=== PATIENT | male | born 1935 | race Caucasian/White ===

== ENCOUNTER 2018-02-21 06:16 | Emergency (ER) | payer OTHER ==
--- OUTSIDE RECORDS SUMMARY | 2018-02-21 06:18 | XMS REPORT | Clinical Summary ---
:1935 Author Organization [facility] Address [address] [place] [address] Phone Care Team Providers Name Role Phone Unavailable Primary Care Provider Unavailable Allergies No Known Allergies Current Medications Prescription Sig. Disp. Refills Start Date End Date Status ramipril (ALTACE) 10 MG Take 10 mg by Active capsule mouth daily. VIT Take 1 capsule by Active C/E/ZN/COPPR/LUTEIN/SONDRA mouth 2 (two) PALLAVI (PRESERVISION AREDS times daily. 2 ORAL) travoprost (TRAVATAN Z) Place 1 drop into Active 0.004 % Drop ophthalmic both eyes drops nightly. BRIMONIDINE Place 1 drop into Active TARTRATE/TIMOLOL both eyes 2 (two) (COMBIGAN OPHT) times daily. cycloSPORINE (RESTASIS) Place 1 drop into Active 0.05 % ophthalmic both eyes 2 (two) emulsion times daily. nisoldipine (SULAR) 17 Take 1 tablet (17 0 06/11/2016 Active MG 24 hr tablet mg total) by mouth daily. aspirin 81 MG chewable Take 1 tablet (81 30 tablet 0 06/10/2016 Active tablet mg total) by mouth daily. clopidogrel (PLAVIX) 75 Take 1 tablet (75 30 tablet 0 06/10/2016 Active mg tablet mg total) by mouth daily. pantoprazole (PROTONIX) Take 1 tablet (40 30 tablet 0 06/10/2016 Active 40 MG tablet mg total) by mouth daily. Active Problems Problem Noted Date Glaucoma 06/09/2016 Peripheral arterial disease (HCC) 06/08/2016 PVD (peripheral vascular disease) (HCC) 05/26/2016 Essential hypertension 05/26/2016 Social History Tobacco Use Types Packs/Day Years Used Date Former Smoker 2 25 Quit: 07/11/1984 Smokeless Tobacco: Never Used Alcohol Use Drinks/Week oz/Week Comments Yes 14 Cans of beer 8.4 Sex Assigned at Date Recorded Not on file Last Filed Vital Signs Not on file Plan of Treatment Health Maintenance Due Date Last Done Comments INFLUENZA VACCINE 04/10/2018 Implants Implanted Type Area Loan Assistant Device Expiration Model / Identifier Date Serial / Lot Grft Vasc Knit Gld [id number] - [id number]/Pa N/A: GETINGE 02/07/2019 [id number] / Implanted: Qty: 1 on 06/08/2016 by Sergio Collins MD [facility] IND:REMI: CV / [id number] Results Not on fileafter 02/20/2017
[2018-02-21 07:08] LABS: Absolute Lymphocytes (CBC) 2.1 K/uL (0.7-4.9); Absolute Monocytes 0.6 K/uL (0.1-1.3); Absolute Neutrophil 4.1 K/uL (1.8-8.0); Basophils % 0.9 % (0-1.3); Eosinophils % 2.2 % (0-4.4); Hematocrit 46.4 % (39.6-49.0); Lymphocytes % 29.6 % (15.3-44.8); MCH 32.2 pg (27.0-35.0); MCV 93.8 fL (80-100); MPV 9.9 fL (7.6-11.3); Monocytes % 8.4 % (3.3-12.3); RBC Red Blood Cell Count 4.94 M/uL (4.33-5.43)
[2018-02-21 07:13] LABS: Protime INR 0.92
[2018-02-21] MEDS ORDERED: ONDANSETRON 4 MG/2 ML VIAL ONE (07:29)
[2018-02-21] MEDS ORDERED: MORPHINE 4 MG/ML SYR ONE (07:29)
[2018-02-21 07:53] LABS: Albumin 3.7 g/dL (3.4-5.0); Bilirubin Direct 0.2 mg/dL (0-0.2); Bilirubin Total 0.7 mg/dL (0.2-1.0); CKMB Creatine Kinase MB 1.4 ng/mL (0.3-3.6); Magnesium 2.3 mg/dL (1.8-2.4)
[2018-02-21] MEDS ORDERED: FENTANYL CITR 100 MCG/2 ML ONE (08:19)
[2018-02-21 08:20] LABS: Urine Blood NEGATIVE (NEG); Urine Glucose NEGATIVE (NEG); Urine Protein NEGATIVE (NEG)
--- NOTE | 2018-02-21 08:46 | RAD REPORT ---
EXAM DESCRIPTION: CT - Abdomen Pelvis W Contrast - 02/21/2018 8:24 am CLINICAL HISTORY: Abdominal pain radiating to the chest, history of kidney stones COMPARISON: None. TECHNIQUE: Biphasic, helical CT imaging of the abdomen and pelvis was performed following 100 ml non -ionic IV contrast. No oral contrast given. All CT scans are performed using dose optimization technique as appropriate and may include automated exposure control or mA/KV adjustment according to patient size. FINDINGS: No suspicious findings in the lung bases. No pericardial effusion. The liver, spleen, and pancreas show no suspicious findings. Gallbladder and biliary tree are also wi thout suspicious finding. Gallstones can be occult on CT imaging. Symmetric renal function is seen with no hydronephrosis or suspicious renal mass. No obstructing or n onobstructing calculi. Scarring changes are present in the upper pole of the left kidney. No pyelonep hritis. Urinary bladder is mostly contracted. Patient has a prominent prostate gland projecting into the bladder base. This is usually benign prostatic hypertrophy. Correlation can be made with PSA valu es. No dilated bowel loops or bowel wall thickening. Distal esophagus is mildly prominent. CT imaging is inherently limited. No appendicitis or other acute GI process seen. No free air, free fluid or inflam matory stranding. No mass or bulky lymphadenopathy. The patient has a very small incidental umbilica l hernia. Small right inguinal hernia is seen. Fat extends a few cm into the inguinal canal. Patient has a moderate size left inguinal hernia. This appears to be both a direct and indirect hernia. No ad renal abnormality. Disc and bone degenerative changes are present. No acute or pathologic bone process identified. The l eft external iliac artery is occluded. Most or possibly all of the left common iliac artery also occl uded. Left internal iliac artery is more difficult to follow. Patient has a fem fem bypass graft in p lace. This fully opacifies with contrast. IMPRESSION: Contrast-enhanced CT imaging shows no acute or emergent findings. No renal or ureteral calculi seen. No acute process. Echavarria of the distal thoracic esophagus are mildly prominent. CT is inherently limited in ability to a ccurately assess the esophagus. Bilateral inguinal hernias left greater than right with no acute component. 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
--- NOTE | 2018-02-21 08:53 | EDPHYS ---
Physician Documentation [facility] Name: Beau Velazquez Age: 82 yrs Sex: Male : 1935 Arrival Date: 02/21/2018 Time: 06:16 Bed 5 Private MD: Gilberto Claire H ED Physician Jeb Wan HPI: 02/21 06:24 This 82 yrs old Male presents to ER via Unassigned with complaints of kb Abdominal Pain. 06:24 The patient presents with abdominal pain that is diffuse. Onset: The symptoms/episode kb began/occurred this morning, at 04:15. The symptoms radiate to chest. Associated signs and symptoms: none. The symptoms are described as dull. Modifying factors: The symptoms are alleviated by nothing, the symptoms are aggravated by nothing. Severity of pain: At its worst the pain was moderate in the emergency department the pain is unchanged. The patient has experienced a previous episode, when he had a kidney stone. The patient has not recently seen a physician. Historical: - Allergies: 06:34 No Known Allergies; ea - Home Meds: 06:34 nisoldipine 17 mg Oral Tb24 1 tab once daily [Active]; ramipril 10 mg Oral cap ea [Active]; atorvastatin 40 mg oral tab [Active]; clopidogrel 75 mg oral tab [Active]; furosemide 40 mg Oral tab [Active]; Travatan Z 0.004 % ophthalmic drop [Active]; Combigan 0.2-0.5 % ophthalmic drop 1 drop every 12 hours [Active]; Restasis 0.05 % ophthalmic dpet [Active]; - PMHx: 06:34 restasis; Hypertension; Glaucoma; ea - PSHx: 06:34 cataracts; ea - Immunization history:: Adult Immunizations up to date. - Social history:: Smoking status: Patient/guardian denies using tobacco. - Ebola Screening: : No symptoms or risks identified at this time. ROS: 06:24 Constitutional: Negative for fever, chills, and weight loss, Cardiovascular: Negative kb for chest pain, palpitations, and edema, Respiratory: Negative for shortness of breath, cough, wheezing, and pleuritic chest pain, Back: Negative for injury and pain, : Negative for injury, bleeding, discharge, and swelling, MS/Extremity: Negative for injury and deformity, Skin: Negative for injury, rash, and discoloration, Neuro: Negative for headache, weakness, numbness, tingling, and seizure. 06:24 Abdomen/GI: Positive for abdominal pain, Negative for nausea, vomiting, and diarrhea, constipation, abdominal cramps, abdominal distension, anorexia. Exam: 06:24 Constitutional: This is a well developed, well nourished patient who is awake, alert, kb and in no acute distress. Head/Face: Normocephalic, atraumatic. Chest/axilla: Normal chest wall appearance and motion. Nontender with no deformity. No lesions are appreciated. Cardiovascular: Regular rate and rhythm with a normal S1 and S2. No gallops, murmurs, or rubs. Normal PMI, no JVD. No pulse deficits. Respiratory: Lungs have equal breath sounds bilaterally, clear to auscultation and percussion. No rales, rhonchi or wheezes noted. No increased work of breathing, no retractions or nasal flaring. Back: No spinal tenderness. No costovertebral tenderness. Full range of motion. Skin: Warm, dry with normal turgor. Normal color with no rashes, no lesions, and no evidence of cellulitis. MS/ Extremity: Pulses equal, no cyanosis. Neurovascular intact. Full, normal range of motion. Neuro: Awake and alert, GCS 15, oriented to person, place, time, and situation. Cranial nerves II-XII grossly intact. Motor strength 5/5 in all extremities. Sensory grossly intact. Cerebellar exam normal. Normal gait. Vital Signs: 06:28 BP 169 / 75; Pulse 77; Resp 18; Temp 98.2; Pulse Ox 97% on R/A; Weight 81.65 kg; Height ea 5 ft. 11 in. (180.34 cm); Pain 7/10; 08:06 BP 156 / 62; Pulse 72; Resp 16; Pulse Ox 98% on R/A; Pain 8/10; ss 06:28 Body Mass Index 25.10 (81.65 kg, 180.34 cm) ea MDM: 06:23 Patient medically screened. kb 06:26 Data reviewed: vital signs, nurses notes. Data interpreted: Pulse oximetry: on room air kb is 100 %. Interpretation: normal. 08:52 Counseling: I had a detailed discussion with the patient and/or guardian regarding: the kb historical points, exam findings, and any diagnostic results supporting the discharge/admit diagnosis, lab results, radiology results, the need for outpatient follow up, a family practitioner, a pier worker, to return to the emergency department if symptoms worsen or persist or if there are any questions or concerns that arise at home. 02/21 06:24 Order name: Basic Metabolic Panel; Complete Time: 07:58 kb 02/21 06:24 Order name: CBC with Diff; Complete Time: 07:20 kb 02/21 06:24 Order name: Ckmb; Complete Time: 07:58 kb 02/21 06:24 Order name: LFT's; Complete Time: 07:58 kb 02/21 06:24 Order name: Magnesium; Complete Time: 07:58 kb 02/21 06:24 Order name: NT PRO-BNP; Complete Time: 07:58 kb 02/21 06:24 Order name: PT-INR; Complete Time: 07:20 kb 02/21 06:24 Order name: Ptt, Activated; Complete Time: 07:20 kb 02/21 06:24 Order name: Troponin (emerg Dept Use Only); Complete Time: 07:25 kb 02/21 06:24 Order name: Lipase; Complete Time: 07:58 kb 02/21 07:53 Order name: Urine Dipstick--Ancillary (enter results); Complete Time: 08:21 bd 02/21 07:59 Order name: CT Abd/Pelvis - W/Contrast; Complete Time: 08:49 kb 02/21 06:24 Order name: EKG; Complete Time: 06:24 kb 02/21 06:24 Order name: Cardiac monitoring; Complete Time: 06:36 kb 02/21 06:24 Order name: EKG - Nurse/Tech; Complete Time: 06:36 kb 02/21 06:24 Order name: IV Saline Lock; Complete Time: 06:55 kb 02/21 06:24 Order name: Labs collected and sent; Complete Time: 06:50 kb 02/21 06:24 Order name: O2 Per Protocol; Complete Time: 06:37 kb 02/21 06:24 Order name: O2 Sat Monitoring; Complete Time: 06:36 kb 02/21 06:24 Order name: Urine Dipstick-Ancillary (obtain specimen); Complete Time: 07:06 kb EC:40 Rate is 78 beats/min. Rhythm is regular, Normal Sinus Rhythm with Right bundle branch kb block. QRS interval is prolonged at 152 msec. Administered Medications: 07:30 Drug: Zofran 4 mg Route: IVP; Site: right forearm; sg 08:10 Follow up: Response: No adverse reaction ss 07:30 Drug: morphine 2 mg Route: IVP; Site: right forearm; sg 08:10 Follow up: Response: Pain is increased ss 08:18 Drug: fentaNYL (PF) 50 mcg Route: IVP; Site: right antecubital; ss 08:31 Follow up: Response: No adverse reaction; Pain is decreased ss 09:06 Drug: ProTONIX 40 mg Route: IVP; Site: right forearm; sg 09:20 Follow up: Response: No adverse reaction sg 09:06 Drug: Bentyl 20 mg Route: PO; sg 09:20 Follow up: Response: No adverse reaction sg Disposition: 02/21/18 08:53 Discharged to Home. Impression: Generalized abdominal pain. - Condition is Stable. - Discharge Instructions: Abdominal Pain, Adult, [id number]. - Prescriptions for Bentyl 20 mg Oral Tablet - take 1 tablet by ORAL route every 6 hours As needed; 20 tablet. - Medication Reconciliation Form, Thank You Letter, Antibiotic Education, Prescription Opioid Use form. - Follow up: Emergency Department; When: As needed; Reason: Worsening of condition. Follow up: Gilberto Claire DO; When: 2 - 3 days; Reason: Recheck today's complaints, Continuance of care, Re-evaluation by your physician. Addendum: 02/25/2018 15:36 Co-signature as Attending Physician, Jeb Wan MD. g s Signatures: Dispatcher [employer] EDVA Sera Khanna, KIM-Marcus HERNANDEZP-Srinivas Stewart RN RN sg Smirch, Shelby, RN RN ss Krenek, Amber RN RN Chuyita Lyn RN RN ea Starr, Gregory, MD MD Corrections: (The following items were deleted from the chart) 02/21 06:55 06:40 Rate is 78 beats/min. Rhythm is regular, Normal Sinus Rhythm with Right bundle kb branch block. kb 09:11 08:53 02/21/2018 08:53 Discharged to Home. Impression: Generalized abdominal pain. sg Condition is Stable. Forms are Medication Reconciliation Form, Thank You Letter, Antibiotic Education, Prescription Opioid Use. Follow up: Emergency Department; When: As needed; Reason: Worsening of condition. Follow up: Gilberto Claire; When: 2 - 3 days; Reason: Recheck today's complaints, Continuance of care, Re-evaluation by your physician. kb
--- NOTE | 2018-02-21 08:53 | ER ---
Nurse's Notes [facility] Name: Beau Velazquez Age: 82 yrs Sex: Male : 1935 Arrival Date: 02/21/2018 Time: 06:16 Bed 5 Private MD: Gilberto Claire H Diagnosis: Generalized abdominal pain Presentation: 02/21 06:25 Presenting complaint: Patient states: Dull abdominal ache that started at 0415 and ea moved up to chest. Pt reports he has a history of kidney stones. Denies n/v/d. Transition of care: patient was not received from another setting of care. Onset of symptoms was February 21, 2018. Risk Assessment: Do you want to hurt yourself or someone else? Patient reports no desire to harm self or others. Initial Sepsis Screen: Does the patient meet any 2 criteria? No. Patient's initial sepsis screen is negative. Does the patient have a suspected source of infection? No. Patient's initial sepsis screen is negative. Care prior to arrival: None. 06:25 Method Of Arrival: Ambulatory ea 06:25 Acuity: RONNIE 3 ea Triage Assessment: 06:27 General: Appears in no apparent distress. Behavior is calm, cooperative, appropriate ea for age. Pain: Complains of pain in abdomen Pain radiates to chest Pain currently is 6 out of 10 on a pain scale. Quality of pain is described as aching. Neuro: Level of Consciousness is awake, alert, obeys commands, Oriented to person, place, time, situation. Cardiovascular: Patient's skin is warm and dry. Respiratory: Airway is patent Respiratory effort is even, unlabored, Respiratory pattern is regular, symmetrical. GI: Abdomen is round Bowel sounds present X 4 quads. Patient currently denies nausea, vomiting. Historical: - Allergies: 06:34 No Known Allergies; ea - Home Meds: 06:34 nisoldipine 17 mg Oral Tb24 1 tab once daily [Active]; ramipril 10 mg Oral cap ea [Active]; atorvastatin 40 mg oral tab [Active]; clopidogrel 75 mg oral tab [Active]; furosemide 40 mg Oral tab [Active]; Travatan Z 0.004 % ophthalmic drop [Active]; Combigan 0.2-0.5 % ophthalmic drop 1 drop every 12 hours [Active]; Restasis 0.05 % ophthalmic dpet [Active]; - PMHx: 06:34 restasis; Hypertension; Glaucoma; ea - PSHx: 06:34 cataracts; ea - Immunization history:: Adult Immunizations up to date. - Social history:: Smoking status: Patient/guardian denies using tobacco. - Ebola Screening: : No symptoms or risks identified at this time. Screenin:29 Abuse screen: Denies threats or abuse. Nutritional screening: No deficits noted. ea Tuberculosis screening: No symptoms or risk factors identified. Fall Risk None identified. Assessment: 06:38 GI: ak1 07:05 General: Appears in no apparent distress. Behavior is calm, cooperative. Pain: ss Complains of pain in abdomen and chest Pain currently is 7 out of 10 on a pain scale. Is continuous. Neuro: Level of Consciousness is awake, alert, obeys commands, Oriented to person, place, time, situation. Cardiovascular: Capillary refill < 3 seconds is brisk in bilateral fingers. Respiratory: Airway is patent Respiratory effort is even, unlabored, Respiratory pattern is regular, symmetrical. Respiratory: Denies cough, shortness of breath. GI: Bowel sounds present X 4 quads. Patient currently denies diarrhea, nausea, vomiting. : No signs and/or symptoms were reported regarding the genitourinary system. EENT: Oral mucosa is moist. Derm: Skin is intact, is healthy with good turgor, Skin is pink, warm \\T\\ dry. normal. Musculoskeletal: Circulation, motion, and sensation intact. Range of motion: intact in all extremities, Swelling absent. 07:31 Reassessment: Patient appears in no apparent distress at this time. Patient and/or sg family updated on plan of care and expected duration. Pain level reassessed. Patient is alert, oriented x 3, equal unlabored respirations, skin warm/dry/pink. pt reports " increase in pain and discomfort." Anu PUBLIC ADDRESS SYSTEM OPERATOR notified, orders received, pt medicated, see EMAR Patient states symptoms have not improved. 07:52 Reassessment: spoke with Domingo in lab requesting when remainder of labs will be ss resulted. Domingo reports that labs are being resulted now. 08:07 Reassessment: Pt reports morphine did not help his pain. Reports pain 02/17, MALACHI Zamora ss notified. Fentanyl ordered. Awaiting medication to come from pharmacy. 08:19 Reassessment: Pt to Ct now VIA wheelchair. Fentanyl given as ordered. ss 08:31 Reassessment: back from CT. Pt reports feeling much better after Fentanyl ss administration. Call light within reach. remains at bedside. Awaiting CT results. Vital Signs: 06:28 BP 169 / 75; Pulse 77; Resp 18; Temp 98.2; Pulse Ox 97% on R/A; Weight 81.65 kg; Height ea 5 ft. 11 in. (180.34 cm); Pain 7/10; 08:06 BP 156 / 62; Pulse 72; Resp 16; Pulse Ox 98% on R/A; Pain 8/10; ss 06:28 Body Mass Index 25.10 (81.65 kg, 180.34 cm) ea ED Course: 06:16 Patient arrived in ED. am2 06:16 Gilberto Claire DO is Private Physician. am2 06:23 [facility] kb 06:23 Jeb Wan MD is Attending Physician. kb 06:25 Arm band placed on right wrist. ea 06:25 Patient has correct armband on for positive identification. Bed in low position. Call ea light in reach. Side rails up X 1. 06:27 Triage completed. ea 06:50 Missed attempt(s): 20 gauge in right antecubital area. Bleeding controlled, band aid ea applied, catheter tip intact. 06:51 Missed attempt(s): 20 gauge in left antecubital area. Bleeding controlled, band aid ak1 applied, catheter tip intact. 06:55 Inserted saline lock: 22 gauge in right forearm, using aseptic technique. Blood fc collected. 07:02 Report given to Olga NEVILLE. ea 07:07 Srinivas Jeff, RN is Primary Nurse. sg 08:23 CT completed. Patient tolerated procedure well. Patient moved to CT. Patient moved back vr from CT. 08:25 CT Abd/Pelvis - W/Contrast In Process Unspecified. EDMS 08:53 Gilberto Claire DO is Referral Physician. kb 09:11 No provider procedures requiring assistance completed. IV discontinued, intact, sg bleeding controlled, No redness/swelling at site. Pressure dressing applied. Administered Medications: 07:30 Drug: Zofran 4 mg Route: IVP; Site: right forearm; sg 08:10 Follow up: Response: No adverse reaction ss 07:30 Drug: morphine 2 mg Route: IVP; Site: right forearm; sg 08:10 Follow up: Response: Pain is increased ss 08:18 Drug: fentaNYL (PF) 50 mcg Route: IVP; Site: right antecubital; ss 08:31 Follow up: Response: No adverse reaction; Pain is decreased ss 09:06 Drug: ProTONIX 40 mg Route: IVP; Site: right forearm; sg 09:20 Follow up: Response: No adverse reaction sg 09:06 Drug: Bentyl 20 mg Route: PO; sg 09:20 Follow up: Response: No adverse reaction sg Outcome: 08:53 Discharge ordered by . kb 09:10 Discharged to home ambulatory, with family. sg 09:10 Condition: stable 09:10 Discharge instructions given to patient, family, Instructed on discharge instructions, follow up and referral plans. medication usage, safety practices, Demonstrated understanding of instructions, follow-up care, medications, Prescriptions given X 1. 09:11 Patient left the ED. sg Signatures: Dispatcher [employer] EDMS Sera Khanna, PUBLIC ADDRESS SYSTEM OPERATOR-C PUBLIC ADDRESS SYSTEM OPERATOR-CkSrinivas Alicea RN RN Yuli Bobby RN RN Olga Sanchez RN RN ss Davis, Victoria vr Krenek, Amber RN RN Oxana Gruber Elena RN RN efrain
[2018-02-21] MEDS ORDERED: DICYCLOMINE HCL 10 MG CAP ONE (09:01)
[2018-02-21] MEDS ORDERED: PANTOPRAZOLE 40 MG INJ ONE (09:01)
--- NOTE | 2018-02-21 21:13 | EKG ---
Test Date: 2018-02-21 Test Time: 06:27:05 Modular Set Crew Member: KWESI MEASUREMENT RESULTS: Intervals: Rate: 78 RI: 196 QRSD: 152 QT: 422 QTc: 481 [place]: P: 65 RI: 196 QRS: 50 T: 47 INTERPRETIVE STATEMENTS: Normal sinus rhythm Possible Left atrial enlargement Right bundle branch block Abnormal ECG No previous ECG available for comparison Electronically Signed On 02-21-18 21:12:48 CDT by Johnny Rodriguez
== END 2018-02-21 09:11 | disposition home or self-care (01) ==
LOC: ER 06:16
DX: R10.84 Generalized abdominal pain (principal); I10 Essential (primary) hypertension
CPT/HCPCS: 36415; 74177; 80048; 80076; 81003; 82553; 83690; 83735; 83880; 84484; 85025; 85610; 85730; 93005; C9113; J2405; J3010; Q9967; 99284

== ENCOUNTER 2018-05-26 16:28 | Emergency (ER) | payer OTHER ==
--- OUTSIDE RECORDS SUMMARY | 2018-05-26 16:31 | XMS REPORT | Clinical Summary ---
:1935 Author Organization [facility] Address [address] [place] [address] Care Team Providers Name Role Phone Sharpmagdiel Primary Care Provider Beau Akers Unavailable Allergies No Known Allergies Medications Medication Sig Dispensed Refills Start Date End Date Status ramipril (ALTACE) 10 MG Take 10 mg by 0 Active capsule mouth daily. VIT Take 1 capsule by 0 Active C/E/ZN/COPPR/LUTEIN/SONDRA mouth 2 (two) PALLAVI (PRESERVISION AREDS times daily. 2 ORAL) travoprost (TRAVATAN Z) Place 1 drop into 0 Active 0.004 % Drop ophthalmic both eyes drops nightly. BRIMONIDINE Place 1 drop into 0 Active TARTRATE/TIMOLOL both eyes 2 (two) (COMBIGAN OPHT) times daily. cycloSPORINE (RESTASIS) Place 1 drop into 0 Active 0.05 % ophthalmic both eyes 2 [...] Noted Date Glaucoma 06/09/2016 Peripheral arterial disease 06/08/2016 PVD (peripheral vascular disease) 05/26/2016 Essential hypertension 05/26/2016 Social History Tobacco Use Types Packs/Day Years Used Date Former Smoker 2 25 Quit: 07/11/1984 Smokeless Tobacco: Never Used Alcohol Use Drinks/Week oz/Week Comments Yes 14 Cans of beer 8.4 Sex Assigned at Date Recorded Not on file Job Start Date Occupation Industry Not on file Not on file Not on file Travel History Travel Start Travel End No recent travel history available. Last Filed Vital Signs Not on file Plan of Treatment Health Maintenance Due Date Last Done Comments INFLUENZA VACCINE 04/10/2018 Implants Implanted Type Area Concrete Stone Fabricator Device Shelf Model / Identifier Expiration Serial / Date Lot Angella Ashraf Gld [id number] - [id number] Graft/Pa N/A: GETINGE 02/07/2019 [id number] / Implanted: Qty: 1 on 06/08/2016 by Sergio Collins MD [facility] IND:REMI: CV / [id number] Results Not on fileafter 05/25/2017 Insurance Payer Benefit Plan / Group Subscriber ID Type Phone Address MEDICARE MEDICARE A B xxxxxxxxxx Medicare AETNA - MGD CARE AETNA INDEMNITY NON CONTR xxxxxxxxx Comm ([place]ah) [place] [address] Advance Directives For more information, please contact:[address] [phone] Code Status Date Activated Date Inactivated Comments Full Code 06/08/2016 11:07 AM 06/10/2016 4:33 PM This code status was determined by: Patient Full Code 06/08/2016 5:52 AM 06/08/2016 11:07 AM This code status was determined by: Patient
--- NOTE | 2018-05-26 18:12 | RAD REPORT ---
EXAM DESCRIPTION: RAD - Forearm Right - 05/26/2018 6:04 pm CLINICAL HISTORY: Right arm pain status post fall FINDINGS: No fracture is seen.
[2018-05-26] MEDS ORDERED: LIDOCAINE 1% MPF 30 ML VIAL ONE (18:24)
--- NOTE | 2018-05-26 19:08 | ER ---
Nurse's Notes [facility] Name: Beau Velazquez Age: 82 yrs Sex: Male : 1935 Arrival Date: 05/26/2018 Time: 16:29 Bed 23 Private MD: Gilberto Claire H Diagnosis: Forearm Laceration Presentation: 05/26 16:42 Presenting complaint: Patient states: He was putting the edger away and he tripped and aj1 the handle cut open his right arm. Laceration noted to right arm, bleeding controlled with pressure dressing. Transition of care: patient was not received from another setting of care. Complicating Factors: There are no complicating factors for this patient. Onset of symptoms was May 26, 2018. Risk Assessment: Do you want to hurt yourself or someone else? Patient reports no desire to harm self or others. Initial Sepsis Screen: Does the patient meet any 2 criteria? No. Patient's initial sepsis screen is negative. Does the patient have a suspected source of infection? Yes: Skin breakdown/wound. Care prior to arrival: None. 16:42 Method Of Arrival: Ambulatory aj1 16:42 Acuity: RONNIE 4 aj1 Triage Assessment: 16:45 General: Appears in no apparent distress. comfortable, Behavior is calm, cooperative, aj1 appropriate for age. Pain: Denies pain. Neuro: Level of Consciousness is awake, alert, obeys commands. Cardiovascular: Patient's skin is warm and dry. Respiratory: Airway is patent Respiratory effort is even, unlabored, Respiratory pattern is regular, symmetrical. Injury Description: Laceration sustained to left arm. Historical: - Allergies: 16:45 No Known Allergies; aj1 - Home Meds: 16:45 atorvastatin 40 mg Oral tab [Active]; Combigan 0.2-0.5 % ophthalmic drop 1 drop every aj1 12 hours [Active]; clopidogrel 75 mg Oral tab [Active]; furosemide 40 mg Oral tab [Active]; nisoldipine 17 mg Oral Tb24 1 tab once daily [Active]; ramipril 10 mg Oral cap [Active]; Restasis 0.05 % ophthalmic dpet [Active]; Travatan Z 0.004 % ophthalmic drop [Active]; - PMHx: 16:45 Glaucoma; Hypertension; restasis; aj1 - Immunization history:: Last tetanus immunization: < 5 years ago Flu vaccine is up to date. - Social history:: Smoking status: Patient/guardian denies using tobacco. - Ebola Screening: : Patient denies travel to an Ebola-affected area in the 21 days before illness onset. Screenin:20 Abuse screen: Denies threats or abuse. Denies injuries from another. Nutritional sg screening: No deficits noted. Tuberculosis screening: No symptoms or risk factors identified. Never had TB. Fall Risk None identified. Assessment: 17:20 General: Appears in no apparent distress. comfortable, well groomed, well developed, sg well nourished, Behavior is calm, cooperative, appropriate for age. Pain: Denies pain. Neuro: No deficits noted. Cardiovascular: Capillary refill is brisk in bilateral fingers Patient's skin is warm and dry. Chest pain is denied. Respiratory: No deficits noted. GI: No signs and/or symptoms were reported involving the gastrointestinal system. : No signs and/or symptoms were reported regarding the genitourinary system. EENT: No signs and/or symptoms were reported regarding the EENT system. Derm: Skin is intact, is fragile, is thin, has skin tears on Dorsal aspect of right forearm Skin is pink, warm \T\ dry. Musculoskeletal: Circulation, motion, and sensation intact. Range of motion: intact in all extremities, Swelling absent. Injury Description: Laceration sustained to dorsal aspect of right forearm is clean, superficial, 0.5 to 2.5 cm long, bleeding moderately, a dressing and nura wrap noted the right forearm, applied in triage per pt. Vital Signs: 16:45 BP 164 / 76; Pulse 86; Resp 18; Temp 97.8; Pulse Ox 97% on R/A; Weight 83.91 kg (R); aj1 Height 5 ft. 11 in. (180.34 cm); Pain 0/10; 18:10 BP 150 / 77; Pulse 88; Resp 17; Pulse Ox 98% on R/A; Pain 0/10; sg 16:45 Body Mass Index 25.80 (83.91 kg, 180.34 cm) aj1 ED Course: 16:29 Patient arrived in ED. sb2 16:29 Gilberto Claire DO is Private Physician. sb2 16:44 Triage completed. aj1 16:45 Arm band placed on Patient placed in an exam room. aj1 16:46 Huy Beckford PA is PHCP. burt 16:46 Jung De Leon MD is Attending Physician. jm 17:20 Patient has correct armband on for positive identification. Bed in low position. Call sg light in reach. vehicle monitor technician on. Pulse ox on. NIBP on. Warm blanket given. Head of bed elevated. 17:37 Srinivas Jeff, RN is Primary Nurse. sg 18:01 Forearm Right XRAY In Process Unspecified. EDMS 18:20 Assist provider with laceration repair on dorsal aspect of right forearm that was sg between 2.6 to 7.5 cm using sutures. Set up tray. Performed by Huy SALDIVAR Dressed with 4X4s, Patient tolerated well. Patient did not have IV access during this emergency room visit. Nura wrap to dorsal aspect of right forearm for pressure dressing per ERP order Kelli pressure dressing education provided to pt, pt stated understanding. Wound care: was dressed with non-adherent x1. 19:07 Gilberto Claire DO is Referral Physician. [facility] Administered Medications: 18:18 Drug: Lidocaine (1 %) 20 ml {Note: medication administered by Huy SALDIVAR for sg laceration repair.} Volume: 20 ml; Route: Infiltration; Outcome: 19:08 Discharge ordered by . [facility] 19:10 Discharged to home ambulatory. sg 19:10 Condition: good 19:10 Discharge instructions given to patient, Instructed on discharge instructions, follow up and referral plans. medication usage, safety practices, wound care, Demonstrated understanding of instructions, follow-up care, medications, wound care, Prescriptions given X 1. 19:13 Patient left the ED. mg2 Signatures: Dispatcher [employer] EDMS Deepti Feng, RN RN aj1 Srinivas Jeff, RN RN Huy Beckford PA PA jmm Billeau, Sheri sb2 Vamshi Myers RN RN mg2
--- NOTE | 2018-05-26 19:09 | EDPHYS ---
Physician Documentation [facility] Name: Beau Velazquez Age: 82 yrs Sex: Male : 1935 Arrival Date: 05/26/2018 Time: 16:29 Bed 23 Private MD: Gilberto Claire H ED Physician Jung De Leon HPI: 05/26 17:30 This 82 yrs old Male presents to ER via Ambulatory with complaints of jmm Laceration To Arm. 17:30 The patient has a laceration related to: falling from a standing position. Onset: The jmm symptoms/episode began/occurred acutely, just prior to arrival. Associated signs and symptoms: Pertinent positives: heavy bleeding. Patient states he fell backwards hitting his arm against an edgers handle. Sent from urgent care due to concerns for heavy bleeding. . Historical: - Allergies: 16:45 No Known Allergies; aj1 - Home Meds: 16:45 atorvastatin 40 mg Oral tab [Active]; Combigan 0.2-0.5 % ophthalmic drop 1 drop every aj1 12 hours [Active]; clopidogrel 75 mg Oral tab [Active]; furosemide 40 mg Oral tab [Active]; nisoldipine 17 mg Oral Tb24 1 tab once daily [Active]; ramipril 10 mg Oral cap [Active]; Restasis 0.05 % ophthalmic dpet [Active]; Travatan Z 0.004 % ophthalmic drop [Active]; - PMHx: 16:45 Glaucoma; Hypertension; restasis; aj1 - Immunization history:: Last tetanus immunization: < 5 years ago Flu vaccine is up to date. - Social history:: Smoking status: Patient/guardian denies using tobacco. - Ebola Screening: : Patient denies travel to an Ebola-affected area in the 21 days before illness onset. ROS: 17:30 Constitutional: Negative for fever, chills, and weight loss, Eyes: Negative for injury, jmm pain, redness, and discharge, ENT: Negative for injury, pain, and discharge, Cardiovascular: Negative for chest pain, palpitations, and edema, Respiratory: Negative for shortness of breath, cough, wheezing, and pleuritic chest pain. 17:30 MS/extremity: Positive for injury or acute deformity, pain. 17:30 Skin: Positive for laceration(s). 17:30 All other systems are negative. Exam: 17:30 Constitutional: This is a well developed, well nourished patient who is awake, alert, jmm and in no acute distress. Head/Face: atraumatic. Eyes: EOMI, no conjunctival erythema appreciated ENT: Moist Mucus Membranes Neck: Trachea midline, Supple Chest/axilla: Normal chest wall appearance and motion. Cardiovascular: Regular rate and rhythm. No edema appreciated Respiratory: Normal respirations, no respiratory distress appreciated Abdomen/GI: Non distended, soft Back: Normal ROM 17:30 Skin: 4 cm laceration noted to the right forearm with mild bleeding. 17:30 Neuro: Orientation: is normal, Mentation: is normal, Memory: is normal, Gait: is steady. 17:30 Psych: Behavior/mood is pleasant, cooperative. Vital Signs: 16:45 BP 164 / 76; Pulse 86; Resp 18; Temp 97.8; Pulse Ox 97% on R/A; Weight 83.91 kg (R); aj1 Height 5 ft. 11 in. (180.34 cm); Pain 0/10; 18:10 BP 150 / 77; Pulse 88; Resp 17; Pulse Ox 98% on R/A; Pain 0/10; sg 16:45 Body Mass Index 25.80 (83.91 kg, 180.34 cm) aj1 Laceration: 19:06 Wound Repair of 4cm ( 1.6in ) subcutaneous laceration to dorsal aspect of right [facility] forearm. Distal neuro/vascular/tendon intact. Anesthesia: Local anesthetic administered with 5 mls of 1% lidocaine. Wound prep: Simple cleansing with hibiclenz by ca. Skin closed with 7 4-0 Prolene using simple sutures and sterile technique. Dressed with pressure dressing, non-adherent dressing. Patient tolerated well. MDM: 17:30 Patient medically screened. [facility] 19:06 Data reviewed: vital signs, nurses notes, radiologic studies, plain films. Data [facility] interpreted: Pulse oximetry: on room air is 97 %. Interpretation: normal. Counseling: I had a detailed discussion with the patient and/or guardian regarding: the historical points, exam findings, and any diagnostic results supporting the discharge/admit diagnosis, radiology results, the need for outpatient follow up, to return to the emergency department if symptoms worsen or persist or if there are any questions or concerns that arise at home. ED course: Bleeding controlled with suturing and pressure dressing. Patient has < 2 sec dist cap refill and full radial pulse, NVI. 05/26 17:30 Order name: Forearm Right XRAY; Complete Time: 18:13 elena 05/26 18:42 Order name: Wound Care; Complete Time: 19:03 [facility] Administered Medications: 18:18 Drug: Lidocaine (1 %) 20 ml {Note: medication administered by Huy SALDIVAR for sg laceration repair.} Volume: 20 ml; Route: Infiltration; Disposition: 05/26/18 19:08 Discharged to Home. Impression: Forearm Laceration. - Condition is Stable. - Discharge Instructions: Laceration Care, Adult. - Prescriptions for Bactrim DS 800- 160 mg Oral Tablet - take 1 tablet by ORAL route every 12 hours for 10 days; 20 tablet. - Medication Reconciliation Form, Thank You Letter, Antibiotic Education, Prescription Opioid Use form. - Follow up: Gilberto Claire DO; When: 1 week; Reason: Recheck today's complaints, Continuance of care, Staple/Suture removal, Re-evaluation by your physician. Addendum: 05/30/2018 17:26 Co-signature as Attending Physician, Jung De Leon MD. m a2 Signatures: Dispatcher [employer] EDDeepti Arellano RN RN aj1 Srinivas Jeff RN RN sg Mickail, Joel, PA PA jmm Alzahri, Mohammad, MD MD ma2 Vamshi Myers RN RN mg2 Corrections: (The following items were deleted from the chart) 05/26 19:13 19:08 05/26/2018 19:08 Discharged to Home. Impression: Forearm Laceration. Condition is mg2 Stable. Forms are Medication Reconciliation Form, Thank You Letter, Antibiotic Education, Prescription Opioid Use. Follow up: Gilberto Claire; When: 1 week; Reason: Recheck today's complaints, Continuance of care, Staple/Suture removal, Re-evaluation by your physician. [facility]
== END 2018-05-26 19:13 | disposition home or self-care (01) ==
LOC: ER 16:28
PROC: 0JQG0ZZ Repair Right Lower Arm Subcutaneous Tissue and Fascia, Open Approach (ICD-10-PCS; principal; 2018-05-26)
DX: S51.811A Laceration without foreign body of right forearm, initial encounter (principal); W01.198A Fall on same level from slipping, tripping and stumbling with subsequent striking against other object, initial encounter; I10 Essential (primary) hypertension; Z79.899 Other long term (current) drug therapy
CPT/HCPCS: 99285

== ENCOUNTER 2019-09-11 12:16 | Emergency (ER) | payer OTHER ==
--- NOTE | 2019-09-11 13:03 | ER ---
Nurse's Notes [facility] Name: Beau Velazquez Age: 83 yrs Sex: Male : 1935 Arrival Date: 09/11/2019 Time: 12:17 Bed 6 Private MD: Diagnosis: Fall on same level from slipping, tripping and stumbling with subsequent striking against other object;Laceration without foreign body of left upper arm;Contusion of left knee Presentation: 09/10 12:36 Chief complaint: Patient states: stepped out from behind registration desk and his knee iw gave out, fell to knees, abrasion to knees and left elbow. Coronavirus screen: The patient has NOT traveled to [place] in the past 14 days. Proceed with normal triage procedures. Ebola Screen: Patient negative for fever greater than or equal to 101.5 degrees Fahrenheit, and additional compatible Ebola Virus Disease symptoms Patient denies exposure to infectious person. Patient denies travel to an Ebola-affected area in the 21 days before illness onset. No symptoms or risks identified at this time. 12:36 Method Of Arrival: Wheelchair iw 12:39 Initial Sepsis Screen: Does the patient meet any 2 criteria? No. Patient's initial iw sepsis screen is negative. Does the patient have a suspected source of infection? No. Patient's initial sepsis screen is negative. Risk Assessment: Do you want to hurt yourself or someone else? Patient reports no desire to harm self or others. 12:39 Acuity: RONNIE 4 iw Triage Assessment: 12:39 General: Appears in no apparent distress. comfortable, Behavior is calm, cooperative, bp appropriate for age. Pain: Denies pain. EENT: No deficits noted. Neuro: No deficits noted. Cardiovascular: No deficits noted. Respiratory: No deficits noted. GI: No signs and/or symptoms were reported involving the gastrointestinal system. : No signs and/or symptoms were reported regarding the genitourinary system. Derm: No deficits noted. Musculoskeletal: No deficits noted. Injury Description: Abrasion sustained to left knee and palmar aspect of left forearm. Historical: - Allergies: 12:39 No Known Allergies; bp - Home Meds: 12:39 Travatan Z 0.004 % ophthalmic drop [Active]; Restasis 0.05 % ophthalmic dpet [Active]; bp ramipril 10 mg Oral cap [Active]; nisoldipine 17 mg Oral Tb24 1 tab once daily [Active]; furosemide 40 mg Oral tab [Active]; clopidogrel 75 mg Oral tab [Active]; atorvastatin 40 mg Oral tab [Active]; Combigan 0.2-0.5 % ophthalmic drop 1 drop every 12 hours [Active]; - PMHx: 12:39 Glaucoma; Hypertension; bp - Immunization history:: Adult Immunizations up to date. - Social history:: Smoking status: Patient denies any tobacco usage or history of. Screenin:41 Abuse screen: Denies threats or abuse. Denies injuries from another. Nutritional bp screening: No deficits noted. Tuberculosis screening: No symptoms or risk factors identified. Fall Risk None identified. Assessment: 12:41 General: SEE TRIAGE NOTE. bp 13:07 Reassessment: PT D/C HOME AMBULATORY, DX WITH SKIN TEAR. NO ACTIVE BLEEDING OR bp CONTUSION NOTED. Vital Signs: 12:39 Weight 79.83 kg; bp 12:57 BP 135 / 70; Pulse 86; Resp 16; Temp 98; Pulse Ox 98% ; bp ED Course: 12:17 Patient arrived in ED. ag5 12:17 Chely Alicea FNP-C [facility]. snw 12:17 Jung De Leon MD is Attending Physician. snw 12:20 Katalina Rich, RN is Primary Nurse. rb1 12:32 Manny Lam, RN is Primary Nurse. bp 12:39 Triage completed. iw 12:39 Arm band placed on. bp 12:41 Patient has correct armband on for positive identification. Bed in low position. Call bp light in reach. Side rails up X2. Adult w/ patient. 12:57 No provider procedures requiring assistance completed. Patient did not have IV access bp during this emergency room visit. Wound care: to SKIN TEAR located on left knee and palmar aspect of left forearm was cleaned with soap and water, dressed with Neosporin, Patient tolerated well. Administered Medications: No medications were administered Outcome: 13:03 Discharge ordered by . snw 13:07 Discharged to home ambulatory, with family. bp 13:07 Condition: stable 13:07 Discharge instructions given to patient, Instructed on discharge instructions, follow up and referral plans. wound care, Demonstrated understanding of instructions, follow-up care, wound care. 13:08 Patient left the ED. bp Signatures: Chely Alicea, TRASH COLLECTOR TRUCK DRIVER-C TRASH COLLECTOR TRUCK DRIVER-Csnw Joyce Aranda, RN RN iw Katalina Rich RN RN rb1 Manny Lam RN RN Kylah Molina ag5
--- NOTE | 2019-09-11 13:03 | EDPHYS ---
Physician Documentation [facility] Name: Beau Velazquez Age: 83 yrs Sex: Male : 1935 Arrival Date: 09/11/2019 Time: 12:17 Bed 6 Private MD: ED Physician Jung De Leon HPI: 09/10 12:45 This 83 yrs old Male presents to ER via Wheelchair with complaints of Fall snw Injury. 12:45 Details of fall: The patient fell from an upright position. Onset: The symptoms/episode snw began/occurred suddenly, just prior to arrival, while volunteering in ED, tripped over a sign and scraped left forearm. Associated injuries: The patient sustained palmar aspect of left forearm. Severity of symptoms: At their worst the symptoms were mild. The patient has experienced similar episodes in the past. It is unknown whether or not the patient has recently seen a physician. Denies bony tenderness, fall witnessed, no LOC. Historical: - Allergies: 12:39 No Known Allergies; bp - Home Meds: 12:39 Travatan Z 0.004 % ophthalmic drop [Active]; Restasis 0.05 % ophthalmic dpet [Active]; bp ramipril 10 mg Oral cap [Active]; nisoldipine 17 mg Oral Tb24 1 tab once daily [Active]; furosemide 40 mg Oral tab [Active]; clopidogrel 75 mg Oral tab [Active]; atorvastatin 40 mg Oral tab [Active]; Combigan 0.2-0.5 % ophthalmic drop 1 drop every 12 hours [Active]; - PMHx: 12:39 Glaucoma; Hypertension; bp - Immunization history:: Adult Immunizations up to date. - Social history:: Smoking status: Patient denies any tobacco usage or history of. ROS: 12:22 Constitutional: Negative for fever, chills, and weight loss, Eyes: Negative for injury, snw pain, redness, and discharge, ENT: Negative for injury, pain, and discharge, Neck: Negative for injury, pain, and swelling, Cardiovascular: Negative for chest pain, palpitations, and edema, Respiratory: Negative for shortness of breath, cough, wheezing, and pleuritic chest pain, Abdomen/GI: Negative for abdominal pain, nausea, vomiting, diarrhea, and constipation, Back: Negative for injury and pain, : Negative for injury, bleeding, discharge, and swelling, MS/Extremity: Negative for injury and deformity, Neuro: Negative for headache, weakness, numbness, tingling, and seizure, Psych: Negative for depression, anxiety, suicide ideation, homicidal ideation, and hallucinations. 12:22 Skin: Positive for laceration(s), of the palmar aspect of left forearm. Exam: 12:18 Constitutional: This is a well developed, well nourished patient who is awake, alert, snw and in no acute distress. Head/Face: Normocephalic, atraumatic. Eyes: Pupils equal round and reactive to light, extra-ocular motions intact. Lids and lashes normal. Conjunctiva and sclera are non-icteric and not injected. Cornea within normal limits. Periorbital areas with no swelling, redness, or edema. ENT: Nares patent. No nasal discharge, no septal abnormalities noted. Tympanic membranes are normal and external auditory canals are clear. Oropharynx with no redness, swelling, or masses, exudates, or evidence of obstruction, uvula midline. Mucous membranes moist. Neck: Trachea midline, no thyromegaly or masses palpated, and no cervical lymphadenopathy. Supple, full range of motion without nuchal rigidity, or vertebral point tenderness. No Meningismus. Chest/axilla: Normal chest wall appearance and motion. Nontender with no deformity. No lesions are appreciated. Cardiovascular: Regular rate and rhythm with a normal S1 and S2. No gallops, murmurs, or rubs. Normal PMI, no JVD. No pulse deficits. Respiratory: Lungs have equal breath sounds bilaterally, clear to auscultation and percussion. No rales, rhonchi or wheezes noted. No increased work of breathing, no retractions or nasal flaring. Abdomen/GI: Soft, non-tender, with normal bowel sounds. No distension or tympany. No guarding or rebound. No evidence of tenderness throughout. Back: No spinal tenderness. No costovertebral tenderness. Full range of motion. MS/ Extremity: Pulses equal, no cyanosis. Neurovascular intact. Full, normal range of motion. Neuro: Awake and alert, GCS 15, oriented to person, place, time, and situation. Cranial nerves II-XII grossly intact. Motor strength 5/5 in all extremities. Sensory grossly intact. Cerebellar exam normal. Normal gait. Psych: Awake, alert, with orientation to person, place and time. Behavior, mood, and affect are within normal limits. 12:18 Skin: Appearance: normal except for affected area, injury, skin tear to left forearm, small avulsion laceration to forearm about one inch from elbow, bright red bleeding, denies pain. Pressure applied to bleeding site.. Vital Signs: 12:39 Weight 79.83 kg; bp 12:57 BP 135 / 70; Pulse 86; Resp 16; Temp 98; Pulse Ox 98% ; bp MDM: 12:18 Patient medically screened. snw 12:46 Data reviewed: vital signs, nurses notes. Data interpreted: Pulse oximetry: on room air snw is 99 %. Interpretation: normal. Response to treatment: the patient's symptoms have mildly improved after treatment. 09/10 12:18 Order name: Wound Care; Complete Time: 12:59 snw 09/10 12:18 Order name: Wound dressing; Complete Time: 12:58 snw Administered Medications: No medications were administered Disposition: 09/11/19 13:03 Discharged to Home. Impression: Fall on same level from slipping, tripping and stumbling with subsequent striking against other object, Laceration without foreign body of left upper arm, Contusion of left knee. - Condition is Stable. - Discharge Instructions: Contusion, Fall Prevention in the Home, Skin Tear Care, Fall Prevention in Hospitals, Adult. - Medication Reconciliation Form, Thank You Letter, Antibiotic Education, Prescription Opioid Use form. - Follow up: Emergency Department; When: As needed; Reason: Worsening of condition. Follow up: Private Physician; When: 2 - 3 days; Reason: Recheck today's complaints, Continuance of care, Re-evaluation by your physician. Addendum: 09/17/2019 01:28 Co-signature as Attending Physician, Jung De Leon MD. m a2 Signatures: Chely Alicea, KIM-C LACE AND TEXTILES RESTORER-[place] Manny Lam RN RN bp Alzahri, Mohammad, MD MD ms2 Corrections: (The following items were deleted from the chart) 09/10 13:08 13:03 09/11/2019 13:03 Discharged to Home. Impression: Fall on same level from bp slipping, tripping and stumbling with subsequent striking against other object; Laceration without foreign body of left upper arm; Contusion of left knee. Condition is Stable. Forms are Medication Reconciliation Form, Thank You Letter, Antibiotic Education, Prescription Opioid Use. Follow up: Emergency Department; When: As needed; Reason: Worsening of condition. Follow up: Private Physician; When: 2 - 3 days; Reason: Recheck today's complaints, Continuance of care, Re-evaluation by your physician. snw
[2019-09-11 14:01] VITALS: BP 135/70; TEMP 98; O2SAT 98
== END 2019-09-11 13:08 | disposition home or self-care (01) ==
LOC: ER 12:16
DX: S51.812A Laceration without foreign body of left forearm, initial encounter (principal); S80.02XA Contusion of left knee, initial encounter; W01.10XA Fall on same level from slipping, tripping and stumbling with subsequent striking against unspecified object, initial encounter; Y93.01 Activity, walking, marching and hiking; Y92.238 Other place in hospital as the place of occurrence of the external cause; Y99.2 Volunteer activity; I10 Essential (primary) hypertension
CPT/HCPCS: 99283

== ENCOUNTER 2020-03-08 10:29 | Emergency (ER) | payer OTHER ==
--- OUTSIDE RECORDS SUMMARY | 2020-03-08 10:31 | XMS REPORT | Clinical Summary ---
:[address] [facility] Address [address] [place] [address] Care Team Providers Name Role Phone Le Primary Care Provider Oswald Linda Unavailable Allergies No Known Allergies Medications Medication Sig Dispensed Refills Start Date End Date Status ramipril (ALTACE) 10 MG Take 10 mg by 0 Active capsule mouth daily. VIT Take 1 capsule by 0 Ac tive C/E/ZN/COPPR/LUTEIN/SONDRA mouth 2 (two) PALLAVI (PRESERVISION AREDS [...] (SULAR) 17 Take 1 tablet (17 0 6 Active MG 24 hr tablet mg total) by mouth daily. aspirin 81 MG chewable Take 1 tablet (81 30 tablet 0 6 Active tablet mg total) by mouth daily. clopidogrel (PLAVIX) 75 Take 1 tablet (75 30 tablet 0 06/10/20 16 Active mg tablet mg total) by mouth daily. pantoprazole (PROTONIX) Take 1 tablet (40 30 tablet 0 06/10/20 16 Active 40 MG tablet mg total) by mouth daily. Active Problems Problem Noted Date Glaucoma 06/09/2016 Peripheral arterial disease 06/08/2016 PVD (peripheral vascular disease) 05/26/2016 Essential hypertension 05/26/2016 Social History Tobacco Use Types Packs/Day Years Used Date Former Smoker 2 25 Quit: 07/11/18 85 Smokeless Tobacco: Never Used Alcohol Use Drinks/Week [...] Health Maintenance Due Date Last Done Comments PNEUMOCOCCAL 65+ LOW/MEDIUM RISK (1 of 2 - PCV13) 2001 INFLUENZA VACCINE (#1) 2020 Implants Implanted Type Area Linux Engineer Device Shelf Model / Identifier Expiration Serial / Date Lot Angella Calvinc Knit Gld [id number] - [id number] Graft/Pa N/A: GETINGE 02/07/2019 [id number] / Implanted: Qty: 1 on 06/08/2016 by Sergio Collins MD [facility] in IND:MAQUET:CV / [id number] Results Not on fileafter 03/08/2019 Insurance Payer Benefit Plan / Group Subscriber ID Type Phone A ddress MEDICARE MEDICARE A B xxxxxxxxxx Medicare AETNA - MGD CARE AETNA INDEMNITY NON CONTR xxxxxxxxx Comm Advance Directives For more information, please contact:[address] [phone] Code Status Date Activated Date Inactivated Comments Full Code 06/08/2016 11:07 AM 06/10/2016 4:33 PM This code status was determined by: Patient Full Code 06/08/2016 5:52 AM 06/08/2016 11:07 AM This code status was determined by: Patient
[2020-03-08 11:38] LABS: Absolute Lymphocytes (CBC) 1.5 K/uL (0.7-4.9); Basophils % 0.8 % (0-1.3); Hematocrit 43.2 % (39.6-49.0); Lymphocytes % 28.1 % (15.3-44.8); MPV 9.6 fL (7.6-11.3); RBC Red Blood Cell Count 4.64 M/uL (4.33-5.43)
[2020-03-08 11:55] LABS: Albumin 3.6 g/dL (3.4-5.0); Bilirubin Total 1.1 mg/dL (0.2-1.0); Potassium 4.1 mmol/L (3.5-5.1); Protein, Total 7.3 g/dL (6.4-8.2)
--- NOTE | 2020-03-08 11:58 | RAD REPORT ---
EXAM DESCRIPTION: RAD - Chest Single View - 03/08/2020 11:41 am CLINICAL HISTORY: CONGESTION COMPARISON: None TECHNIQUE: AP portable chest image was obtained 03/08/2020 11:41 am . FINDINGS: Lungs are clear. Heart and vasculature are normal. No measurable pleural effusion and no p neumothorax. No acute bony abnormality seen. No acute aortic findings suspected. IMPRESSION: No acute cardiopulmonary process.
[2020-03-08] MEDS ORDERED: LIDOCAINE VISCOUS 2% SOLN 15 ML UDC ONE (12:05)
--- NOTE | 2020-03-08 12:53 | RAD REPORT ---
EXAM DESCRIPTION: CT - CTHCSPWOC - 03/08/2020 12:32 pm CLINICAL HISTORY: fall, head and neck injury COMPARISON: Soft Tissue Neck W/Contr dated 03/08/2020 TECHNIQUE: Axial 5 mm thick images of the head were obtained. Axial 2 mm thick images of the cervic al spine were obtained with sagittal and coronal reconstruction images generated and reviewed. All CT scans are performed using dose optimization technique as appropriate and may include automated exposure control or mA/KV adjustment according to patient size. FINDINGS: No intracranial hemorrhage, mass, edema or acute intracranial finding. No suspicion for ac [place] infarction. Atrophy and chronic ischemic changes are present. Ventricles are in proportion to vol ume loss. Mastoid air cells and paranasal sinuses are clear. No globe or orbit abnormality seen. Cervical body height and alignment are normal. Disc space narrowing present C6-7 and C7-T1. No fractu re or acute finding in the cervical vertebral body. Multilevel facet joint degenerative change presen t. No critical degree of foraminal stenosis. Patient has mild foraminal encroachment changes at C6-7. Fracture is present at the anterior inferior aspect of the T2 body. Body height is preserved. No path ologic change. No posterior column are posterior element acute component. Facet degenerative changes are present. Central canal detail is inherently limited. No paraspinal mass or hematoma. IMPRESSION: Oblique fracture is present at the anterior inferior aspect of the T2 vertebral body. No pathologic component seen. T2 body height is preserved. No posterior wall or posterior element involvement. Cervical spine degenerative change without cervical spine fracture. Atrophy and chronic ischemic changes are present. No acute intracranial finding.
--- NOTE | 2020-03-08 12:58 | RAD REPORT ---
EXAM DESCRIPTION: CT - Soft Tissue Neck W/Contr - 03/08/2020 12:39 pm CLINICAL HISTORY: difficulty swallowing COMPARISON: Head C Spine Mpr Wo Con dated 03/08/2020 TECHNIQUE: During dynamic enhancement using 100 milliliters nonionic IV contrast, axial 5 millimeter thick images of the neck were obtained. All CT scans are performed using dose optimization technique as appropriate and may include automated exposure control or mA/KV adjustment according to patient size. FINDINGS: Intracranial portion of the examination is without acute finding. Patient may have a venou s angioma in the inferior left cerebellum as a normal variant. No globe or orbital content acute find ing. Mastoid air cells are clear. No pharyngeal mucosal mass or asymmetry. Parapharyngeal fat is normal. No soft palate, tonsil, tongue base or epiglottis abnormality identifiable. Detail is somewhat limited by dental spray artifact. No vocal cord or laryngeal acute finding identified. No acute vascular finding. The parotid, submandibular and thyroid gland tissues without suspicious fi nding. No abnormal lymphadenopathy or soft tissue mass. Cervical spine and upper thoracic spine degenerative changes are present. Findings are further detail ed in separate CT head and cervical spine report. IMPRESSION: CT soft tissue neck examination shows no acute or suspicious finding. Please see separate CT head and cervical spine report.
--- NOTE | 2020-03-08 13:09 | ER ---
Nurse's Notes [facility] Name: Beau Velazquez Age: 84 yrs Sex: Male : 1935 Arrival Date: 03/08/2020 Time: 10:36 Bed 5 Private MD: Gilberto Claire H Diagnosis: Fracture of second thoracic vertebra;Dysphagia, unspecified Presentation: 03/08 10:53 Chief complaint: Patient states: Difficulty swallowing solid food x weeks. Pt states, ss "I ate good last night, so now I'm paying for it." Pt c/o sore throat. Coronavirus screen: Client denies travel out of the [place] in the last 14 days. Ebola Screen: Patient denies exposure to infectious person. Patient denies travel to an Ebola-affected area in the 21 days before illness onset. Initial Sepsis Screen: Does the patient meet any 2 criteria? No. Patient's initial sepsis screen is negative. Does the patient have a suspected source of infection? No. Patient's initial sepsis screen is negative. Risk Assessment: Do you want to hurt yourself or someone else? Patient reports no desire to harm self or others. Onset of symptoms is unknown. 10:53 Method Of Arrival: Ambulatory ss 10:53 Acuity: RONNIE 3 ss Historical: - Allergies: 10:56 No Known Allergies; ss - PMHx: 10:56 Glaucoma; Hypertension; ss - Immunization history:: Adult Immunizations up to date. - Social history:: Smoking status: Patient denies any tobacco usage or history of. Patient/guardian denies using alcohol, street drugs, The patient lives with family. - Family history:: not pertinent. Screenin:30 Abuse screen: Denies threats or abuse. Denies injuries from another. Nutritional hb screening: No deficits noted. Tuberculosis screening: No symptoms or risk factors identified. Fall Risk None identified. Assessment: 11:15 General: Appears in no apparent distress. Behavior is calm, cooperative. Pain: Pain hb currently is 2 out of 10 on a pain scale. Neuro: Level of Consciousness is awake, alert, obeys commands, Oriented to person, place, time, situation. Cardiovascular: Patient's skin is warm and dry. Respiratory: Respiratory effort is even, unlabored, Respiratory pattern is regular, symmetrical. GI: No signs and/or symptoms were reported involving the gastrointestinal system. : No signs and/or symptoms were reported regarding the genitourinary system. EENT: Reports difficulty swallowing. Derm: Skin is pink, warm \\T\\ dry. Musculoskeletal: No signs and/or symptoms reported regarding the musculoskeletal system. 12:00 Reassessment: Patient appears in no apparent distress at this time. Patient and/or hb family updated on plan of care and expected duration. Pain level reassessed. Patient is alert, oriented x 3, equal unlabored respirations, skin warm/dry/pink. 12:45 Reassessment: Patient appears in no apparent distress at this time. Patient and/or hb family updated on plan of care and expected duration. Pain level reassessed. Patient is alert/active/playful, equal unlabored respirations, skin warm/dry/pink. Vital Signs: 10:53 BP 122 / 63; Pulse 74; Resp 16; Temp 97.4(TE); Pulse Ox 95% on R/A; Weight 80.29 kg; ss Height 5 ft. 10 in. (177.80 cm); Pain 2/10; 11:15 BP 101 / 50; Pulse 72; Resp 15; Pulse Ox 99% on R/A; hb 10:53 Body Mass Index 25.40 (80.29 kg, 177.80 cm) ED Course: 10:36 Patient arrived in ED. mr 10:37 Gilberto Claire DO is Private Physician. mr 10:53 Jung De Leon MD is Attending Physician. ma2 10:55 Triage completed. ss 10:56 Arm band placed on right wrist. ss 11:30 Patient has correct armband on for positive identification. Bed in low position. Call hb light in reach. Side rails up X 1. 11:30 Inserted saline lock: 20 gauge in right antecubital area, using aseptic technique. hb Blood collected. 11:42 Chest Single View XRAY In Process Unspecified. EDMS 11:52 Linda Rubio, KELIN is Primary Nurse. sv 12:32 CT Head C Spine In Process Unspecified. EDMS 12:39 Soft Tissue Neck W/Contr In Process Unspecified. EDMS 13:10 initiated a transfer with Abiola Saeed from the [facility]. eb 13:[address] Morales the neurologist outside contractor sales for [facility] with Dr. De Leon for patient transfer consultation. 13:[address] Wright the hospitalist outside contractor sales for [facility] with Dr. De Leon for patient transfer consultation. 14:00 CT Thoracic Spine Wo Cont In Process Unspecified. EDMS 14:00 CT Lumbar Spine Wo Con In Process Unspecified. EDMS 14:07 administrative approval given by Abiola Saeed/ patient has been accepted to [facility] bed 2223/ Dr Wright has accepted the patient in transfer/ report to be called to [phone]. Administered Medications: 11:52 CANCELLED (Physician Discretion): GI Cocktail without - (Maalox Suspension 30 sv ml, Lidocaine Liquid 2 % 15 ml) PO once 12:06 Drug: Viscous Lidocaine Liquid (4 %) 15 ml Route: Mucous Membrane; sv Outcome: 13:08 ER care complete, transfer ordered by . vandana 14:57 Patient left the ED. hb Signatures: Dispatcher [employer] Leslie Sol, RN RN Agustina Yuan mr Olga Muro RN Linda Ch RN RN Jung De Leon MD MD ma2 Botello, Elizabeth
--- NOTE | 2020-03-08 13:09 | EDPHYS ---
Physician Documentation [facility] Name: Beau Velazquez Age: 84 yrs Sex: Male : 1935 Arrival Date: 03/08/2020 Time: 10:36 Bed 5 Private MD: Gilberto Claire H ED Physician Jung De Leon HPI: 03/08 11:03 This 84 yrs old Male presents to ER via Ambulatory with complaints of ma2 Difficulty Swallowing. 11:03 The patient presents with dysphagia, of solids. The patient describes throat pain as ma2 burning. Onset: The symptoms/episode began/occurred gradually, 1 week(s) ago. Severity of symptoms: At their worst the symptoms were mild, in the emergency department the symptoms are unchanged. Associated signs and symptoms: Pertinent negatives. The patient has not experienced similar symptoms in the past. Historical: - Allergies: 10:56 No Known Allergies; ss - PMHx: 10:56 Glaucoma; Hypertension; ss - Immunization history:: Adult Immunizations up to date. - Social history:: Smoking status: Patient denies any tobacco usage or history of. Patient/guardian denies using alcohol, street drugs, The patient lives with family. - Family history:: not pertinent. ROS: 11:03 Constitutional: Negative for fever, chills, and weight loss. ma2 11:03 All other systems are negative. Exam: 11:03 Constitutional: This is a well developed, well nourished patient who is awake, alert, ma2 and in no acute distress. Head/Face: Normocephalic, atraumatic. Eyes: Pupils equal round and reactive to light, extra-ocular motions intact. Lids and lashes normal. Conjunctiva and sclera are non-icteric and not injected. Cornea within normal limits. Periorbital areas with no swelling, redness, or edema. ENT: Nares patent. No nasal discharge, no septal abnormalities noted. Tympanic membranes are normal and external auditory canals are clear. Oropharynx with no redness, swelling, or masses, exudates, or evidence of obstruction, uvula midline. Mucous membranes moist. Neck: Trachea midline, no thyromegaly or masses palpated, and no cervical lymphadenopathy. Supple, full range of motion without nuchal rigidity, or vertebral point tenderness. No Meningismus. Chest/axilla: Normal chest wall appearance and motion. Nontender with no deformity. No lesions are appreciated. Cardiovascular: Regular rate and rhythm with a normal S1 and S2. No gallops, murmurs, or rubs. Normal PMI, no JVD. No pulse deficits. Respiratory: Lungs have equal breath sounds bilaterally, clear to auscultation and percussion. No rales, rhonchi or wheezes noted. No increased work of breathing, no retractions or nasal flaring. Abdomen/GI: Soft, non-tender, with normal bowel sounds. No distension or tympany. No guarding or rebound. No evidence of tenderness throughout. MS/ Extremity: Pulses equal, no cyanosis. Neurovascular intact. Full, normal range of motion. Neuro: Awake and alert, GCS 15, oriented to person, place, time, and situation. Cranial nerves II-XII grossly intact. Motor strength 5/5 in all extremities. Sensory grossly intact. Cerebellar exam normal. Normal gait. Vital Signs: 10:53 BP 122 / 63; Pulse 74; Resp 16; Temp 97.4(TE); Pulse Ox 95% on R/A; Weight 80.29 kg; ss Height 5 ft. 10 in. (177.80 cm); Pain 2/10; 11:15 BP 101 / 50; Pulse 72; Resp 15; Pulse Ox 99% on R/A; hb 10:53 Body Mass Index 25.40 (80.29 kg, 177.80 cm) ss MDM: 10:53 Patient medically screened. ma2 11:03 Differential diagnosis: gastroesophageal reflux disease, smoke inhalation, tonsillitis, ma2 upper respiratory infection, uvulitis, viral syndrome. 13:04 Data reviewed: vital signs, nurses notes. Counseling: I had a detailed discussion with ma2 the patient and/or guardian regarding: the historical points, exam findings, and any diagnostic results supporting the discharge/admit diagnosis, the presence of at least one elevated blood pressure reading (>120/80) during this emergency department visit, the need to transfer to another facility. ED course: patient has T2 anterior vertebral fracture, given the fact that this is affecting his posture in a way his neck is flexed and that is affecting his swallowing. he is unable to swallow solids. he need to be evaluated by spine surgeon, will transfer to another hospital for higher level of care as no ortho or nsgy available in our hospital . 13:27 Special discussion: discussed with dr. Johnson neurologist on behalf of the surgical mo2 team at [facility]. 13:42 ED course: accepted by dr. meier hospitalist . mo2 03/08 11:01 Order name: CBC with Diff; Complete Time: 12:18 mo2 03/08 11:01 Order name: CMP; Complete Time: 12:18 mo2 03/08 11:00 Order name: CT Head C Spine; Complete Time: 13:02 mo2 03/08 11:05 Order name: Chest Single View XRAY; Complete Time: 12:18 [facility] 03/08 11:58 Order name: Soft Tissue Neck W/Contr; Complete Time: 13:02 EDAL 03/08 13:01 Order name: CT Thoracic Spine Wo Cont mo2 03/08 13:01 Order name: CT Lumbar Spine Wo Con ma2 Administered Medications: 11:52 CANCELLED (Physician Discretion): GI Cocktail without - (Maalox Suspension 30 sv ml, Lidocaine Liquid 2 % 15 ml) PO once 12:06 Drug: Viscous Lidocaine Liquid (4 %) 15 ml Route: Mucous Membrane; sv Disposition: 03/08/20 13:[address] [facility]. Diagnosis are Fracture of second thoracic vertebra, Dysphagia, unspecified. - Reason for transfer: Higher level of care. - Accepting physician is OSH. - Condition is Stable. - Problem is new. - Symptoms are unchanged. Signatures: Dispatcher [employer] EDAL Leslie Peter RN RN Olga Muro RN RN Linda Rubio RN RN Jung De Leon MD MD mo2 Corrections: (The following items were deleted from the chart) 11:52 11:32 GI Cocktail without - (Maalox 30 ml, Lidocaine 15 ml) PO once ordered. sv ma2 11:52 11:52 GI Cocktail without - (Maalox 30 ml, Lidocaine 15 ml) PO once ordered. svsv 11:58 11:05 Neck Soft Tissue W/Wo Contr ordered. EDAL EDMS 14:57 13:08 03/08/2020 13:[address] [facility]. hb Diagnosis is Fracture of second thoracic vertebra; Dysphagia, unspecified. Reason for transfer: Higher level of care. Accepting physician is OSH. Condition is Stable. Problem is new. Symptoms are unchanged. ma2
--- NOTE | 2020-03-08 14:15 | RAD REPORT ---
EXAM DESCRIPTION: CT - Thoracic Spine W/o Cont - 03/08/2020 1:59 pm CLINICAL HISTORY: T2 fracture, fall COMPARISON: Delete select CT cervical spine same date TECHNIQUE: Axial 3 mm thick images of the thoracic spine were obtained with sagittal and coronal rec onstruction images generated and reviewed. All CT scans are performed using dose optimization technique as appropriate and may include automated exposure control or mA/KV adjustment according to patient size. FINDINGS: Oblique fracture at the anterior inferior aspect of the T2 body is again noted. Fracture e xtends from the anterior mid wall inferiorly to the articular surface. This tear drop fracture shows no overall loss in height of the vertebral body. Degenerative gas is present in the T2-3 disc space. The appearance of the fracture plane would be consistent with the provided history of a fall 1 month earlier. Posterior wall height is preserved at T2. No posterior wall, central canal or posterior [place] ent abnormality. Remainder of the thoracic spine shows no additional fracture site. Endplate spurring changes are pres ent throughout most of the thoracic spine. Degenerative disc disease throughout multiple levels with degenerative gas present. No paraspinal soft tissue mass. No pathologic bone process. Central canal detail is inherently limited on CT imaging. IMPRESSION: T2 teardrop fracture anterior inferior aspect. The appearance of the fracture line is c onsistent with a history of a fall 1 month earlier. T2 overall vertebral body height is maintained with no posterior wall, central canal or posterior leigh ment component. Degenerative change throughout the vertebral body and disc spaces of thoracic spine with no additiona l fracture site or acute finding.
--- NOTE | 2020-03-08 14:19 | RAD REPORT ---
EXAM DESCRIPTION: CT - Spine Lumbar Wo Con - 03/08/2020 1:59 pm CLINICAL HISTORY: trauma, fall, back pain COMPARISON: None. TECHNIQUE: Thin section axial imaging of the lumbar spine was performed. Sagittal and coronal recon struction images were generated and reviewed. All CT scans are performed using dose optimization technique as appropriate and may include automated exposure control or mA/KV adjustment according to patient size. FINDINGS: Lumbar bodies are normal in height. Very slight anterior subluxation of L5 on S1. Right L5 pars interarticularis defect is present. Sclerotic changes are present at the left pars interarticul patti and there are prominent facet degenerative changes present. Facet degenerative changes are prese nt elsewhere in the lumbar spine with no additional pars defect. No pathologic bone process. No paraspinal soft tissue mass. Contrast is present in the renal collecting systems from earlier cont rast CT imaging. No central canal disc herniation identified. Mild circumferential bulging of disc ma terial at L2-3, L3-4 and L5 -S1. Protruding disc material in the right L4-5 exit foramen is probably disc herniation. Right L4-5 foraminal encroachment present. IMPRESSION: No compression fracture or acute lumbar vertebral body finding. Multilevel degenerative disc disease is present including focal herniation in the right L4-5 exit for amen. Right L4-5 foraminal stenosis present.
== END 2020-03-08 14:57 | disposition short-term general hospital (02) ==
LOC: ER 10:29
DX: S22.029A Unspecified fracture of second thoracic vertebra, initial encounter for closed fracture (principal)
CPT/HCPCS: 85025; 36415; 80053; 72131; 70450; 72125; 72128; 70491; 71045; 99284; Q9967

== ENCOUNTER 2020-06-15 11:18 | Emergency (ER) | payer OTHER ==
--- OUTSIDE RECORDS SUMMARY | 2020-06-15 11:20 | XMS REPORT | Clinical Summary ---
:1935 Author Organization [facility] Address [address] [place] [address] Care Team Providers Name Role Phone Le [...] MG tablet mg total) by mouth daily. nisoldipine (SULAR) 17 Take 17 mg by 0 Active MG 24 hr tablet mouth daily. ramipriL (ALTACE) 10 MG Take 10 mg by 0 Active capsule mouth daily. clopidogreL (PLAVIX) 75 Take 75 mg by 0 Active mg tablet mouth daily. furosemide (LASIX) 40 Take 40 mg by 0 Active MG tablet mouth daily. atorvastatin (LIPITOR) Take 40 mg by 0 Active 40 MG tablet mouth daily. latanoprost (XALATAN) Place 1 drop into 0 Active 0.005 % ophthalmic both eyes solution nightly. cycloSPORINE (RESTASIS) Place 1 drop into 0 Active 0.05 % ophthalmic both eyes every emulsion 12 (twelve) hours. brimonidine-timoloL Place 1 drop into 0 Active (COMBIGAN) 0.2-0.5 % both eyes every ophthalmic solution 12 (twelve) hours. mag hydrox/aluminum Take 35 mLs by 35 mL 0 03/12/2020 Active hyd/simeth (GI COCKTAIL mouth every 6 COMPOUNDED) solution (six) hours as needed (dysphagia). Active Problems Problem Noted Date Closed T2 fracture 03/08/2020 Glaucoma 06/09/2016 Peripheral arterial disease 06/08/2016 PVD (peripheral vascular disease) 05/26/2016 Essential hypertension 05/26/2016 Encounters Date Type Specialty Care Team Description 03/08/2020 - Hospital General Internal Roxana Wright Closed f racture of second thoracic vertebra, unspecified fracture morphology, initial encounter ([facility]); 03/12/2020 Encounter Medicine PMD Javy Dysphagia, unspecified type; Erum Shaw, Essential hy pertension; Oropharyngeal dysphagia Funmi Love MD 03/08/2020 Travel 03/08/2020 Orders Only General Internal Medicine after 06/15/2019 Social History Tobacco Use Types Packs/Day Years Used Date Former Smoker 2 25 Quit: 07/11/18 85 Smokeless Tobacco: Former User Alcohol Use Drinks/Week oz/Week Comments Yes 14 Cans of beer 14.0 Sex Assigned at Date Recorded Not on file Last Filed Vital Signs Vital Sign Reading Time Taken Comments Blood Pressure 117/58 03/12/2020 12:28 PM CDT Pulse 73 03/12/2020 12:28 PM CDT Temperature 36 C (96.8 F) 03/12/2020 12:28 PM CDT Respiratory Rate 18 03/12/2020 12:28 PM CDT Oxygen Saturation 94% 03/12/2020 12:28 PM CDT Inhaled Oxygen Concentration - - Weight 76.7 kg (169 lb) 03/08/2020 4:00 PM CDT Height 177.8 cm (5' 10") 03/08/2020 4:00 PM CDT Body Mass Index 24.25 03/08/2020 4:00 PM CDT Plan of Treatment Health Maintenance Due Date Last Done Comments PNEUMOCOCCAL 65+ YRS (1 of 1 - [id number]) 2001 MEDICARE ANNUAL WELLNESS (YEAR 2 or FIRST YEAR if no 11/09/2002 IPPE) INFLUENZA VACCINE (#1) 2020 Implants Implanted Type Area Cost Specialist Device Shelf Model / Identifier Expiration Serial / Date Lot Angella Ashraf Gld [id number] - [id number]/Pa N/A: GETINGE 02/07/2019 [id number] / Implanted: Qty: 1 on 06/08/2016 by Sergio Collins MD at [facility] IND:MAQUET:CV / [id number] Description:n# [id number] Procedures Procedure Name Priority Date/Time Associated Comments Diagnosis XR ESOPH SWALLOW Routine 03/12/2020 11:18 Results for this FUNCTION W/CINE VIDEO AM CDT proced ure are in the results section. CBC W/PLT COUNT & AUTO Routine 03/12/2020 4:01 R esults for this DIFFERENTIAL AM CDT procedure are i n the results section. MAGNESIUM Routine 03/12/2020 4:01 Results for this AM CDT procedure are i n the results section. BASIC METABOLIC PANEL Routine 03/12/2020 4:01 Re sults for this (7) AM CDT procedure are i n the results section. CBC W/PLT COUNT & AUTO Routine 03/12/2020 4:01 R esults for this DIFFERENTIAL AM CDT procedure are i n the results section. SARS-COV2/RT-PCR ([facility] STAT 03/11/2020 12:24 R esults for this & REF LABS) PM CDT procedure are i n the results section. CBC W/PLT COUNT & AUTO Routine 03/11/2020 4:12 R esults for this DIFFERENTIAL AM CDT procedure are i n the results section. MAGNESIUM Routine 03/11/2020 4:12 Results for this AM CDT procedure are i n the results section. BASIC METABOLIC PANEL Routine 03/11/2020 4:12 Re sults for this (7) AM CDT procedure are i n the results section. CBC W/PLT COUNT & AUTO Routine 03/11/2020 4:12 R esults for this DIFFERENTIAL AM CDT procedure are i n the results section. CBC W/PLT COUNT & AUTO Routine 03/10/2020 4:11 R esults for this DIFFERENTIAL AM CDT procedure are i n the results section. MAGNESIUM Routine 03/10/2020 4:11 Results for this AM CDT procedure are i n the results section. BASIC METABOLIC PANEL Routine 03/10/2020 4:11 Re sults for this (7) AM CDT procedure are i n the results section. CBC W/PLT COUNT & AUTO Routine 03/10/2020 4:11 R esults for this DIFFERENTIAL AM CDT procedure are i n the results section. CT CHEST WITH IV Routine 03/10/2020 2:36 Results for this CONTRAST AM CDT procedure are i n the results section. CT NECK SOFT TISSUE Routine 03/10/2020 2:36 Resu lts for this WITH IV CONTRAST AM CDT procedure a re in the results section. CBC W/PLT COUNT & AUTO Routine 03/09/2020 4:20 R esults for this DIFFERENTIAL AM CDT procedure are i n the results section. MAGNESIUM Routine 03/09/2020 4:20 Results for this AM CDT procedure are i n the results section. BASIC METABOLIC PANEL Routine 03/09/2020 4:20 Re sults for this (7) AM CDT procedure are i n the results section. CBC W/PLT COUNT & AUTO Routine 03/09/2020 4:20 R esults for this DIFFERENTIAL AM CDT procedure are i n the results section. CT LUMBAR SPINE MARCIE 03/09/2020 3:42 Results for this WITHOUT IV CONTRAST AM CDT procedur e are in the results section. CT THORACIC SPINE MARCIE 03/09/2020 3:42 Result s for this WITHOUT IV CONTRAST AM CDT procedur e are in the results section. XR SPINE THORACIC 2 MARCIE 03/08/2020 8:51 Resu lts for this VIEWS PM CDT procedure are i n the results section. CBC W/PLT COUNT & AUTO Routine 03/08/2020 5:28 R esults for this DIFFERENTIAL PM CDT procedure are i n the results section. PROTHROMBIN TIME/INR Routine 03/08/2020 5:28 Res ults for this PM CDT procedure are i n the results section. CBC W/PLT COUNT & AUTO Routine 03/08/2020 5:28 R esults for this DIFFERENTIAL PM CDT procedure are i n the results section. COMPREHENSIVE Routine 03/08/2020 5:28 Results fo r this METABOLIC PANEL PM CDT procedure ar e in the results section. ECG 12-LEAD Routine 03/08/2020 5:10 PM CDT Procedure Note - Interface, External Ris In - 03/08/2020 5:20 PM CDT Ventricular Rate 76 BPM Atrial Rate 76 BPM P-R Interval 174 ms QRS Duration 152 ms Q-T Interval 440 ms QTC Calculation(Bazett) 495 ms P [place] 40 degrees R [place] 41 degrees T [place] 24 degrees Normal sinus rhythm Right bundle branch block Abnormal ECG No previous ECGs available ECG 12-LEAD Routine 03/08/2020 5:10 PM CDT Resu lts for this procedure are in the resu lts section. XR CHEST 1 VIEW MARCIE 03/08/2020 5:00 PM CDT R esults for this procedure PORTABLE/BEDSIDE are in the results section. after 06/15/2019 Results [place] esoph swallow funct with cine video (03/12/2020 11:18 AM CDT) Specimen Narrative Performed At FINAL REPORT [facility] Modified barium swallow exam with speech pathology service CLINICAL HISTORY: DYSPHAGIA TO SOLIDS IMPRESSION: Please see the speech pathology service report for details. Barium contrast of multiple consistencie s is given to the patient to swallow. Fluoroscopic observation is per formed during swallowing. No aspiration Fluoro time: 2.1 minutes Number of images: 22 Signed: Alexis Thacker MD Report Verified Date/Time: 03/12/2020 13:41:11 Reading Location: [address] Reading Room Procedure Note Interface, External Ris In - 03/12/2020 1:43 PM CDT FINAL REPORT Modified barium swallow exam with speech pathology service CLINICAL HISTORY: DYSPHAGIA TO SOLIDS IMPRESSION: Please see the speech pathology service report for details. Barium contrast of multiple consistencie s is given to the patient to swallow. Fluoroscopic observation is per formed during swallowing. No aspiration Fluoro time: 2.1 minutes Number of images: 22 Signed: Alexis Thacker MD Report Verified Date/Time: 03/12/2020 1 3:41:11 Reading Location: [facility] [id number] Ortho [facility] sult Reading Room Performing Organization Address City/State/Zipcode Phone Number GE RIS CBC with platelet count + automated diff (03/12/2020 4:01 AM CDT)Only the most recent of5 resultswithin the time period is included. Pathologist Sig nature WBC 7.7 3.5 - 10.5 [facility] K/L [facility] RBC 4.41 (L) 4.63 - 6.08 [facility] M/L [facility] Hemoglobin 13.9 13.7 - 17.5 [facility] GM/DL [facility] Hematocrit 41.8 40.1 - 51.0 % [facility] MCV 94.8 (H) 79.0 - 92.2 fL [facility] MCH 31.5 25.7 - 32.2 pg [facility] MCHC 33.3 32.3 - 36.5 [facility] RDW 12.4 11.6 - 14.4 % [facility] Platelets 165 150 - 450 K/CU [facility] MPV 10.9 9.4 - 12.4 fL [facility] nRBC 0 0 - 0 /100 WBC [facility] % Neutros 57 % [facility] % Lymphs 27 % [facility] % Monos 12 % [facility] % Eos 3 % [facility] % Baso 1 % [facility] # Neutros 4.40 1.78 - 5.38 [facility]/L [facility] # Lymphs 2.06 1.32 - 3.57 [facility] # Monos 0.94 (H) 0.30 - 0.82 [facility] # Eos 0.22 0.04 - 0.54 [facility] # Baso 0.04 0.01 - 0.08 [facility] Immature 0 0 - 1 % [facility] Granulocytes-[facility] Specimen Blood Performing Organization Address City/State/Zipcode Phone Number [address] [address] CENTER Magnesium (03/12/2020 4:01 AM CDT)Only the most recent of4 resultswithin the time period is included. Pathologist Sig nature Magnesium 1.9 1.6 - 2.6 mg/dL [facility] Specimen Blood Narrative Performed At [employer] - [facility] MED [facility]AL CENTER Performing Organization Address City/State/Zipcode Phone Number [address] [address] CENTER Basic metabolic panel (03/12/2020 4:01 AM CDT)Only the most recent of4 results within the time period is included. Sodium 141 136 - 145 meq/L [facility] Potassium 3.9 3.5 - 5.1 meq/L [facility] Chloride 105 98 - 107 meq/L [facility] CO2 28 22 - 29 meq/L [facility] BUN 17 7 - 21 mg/dL [facility] Creatinine 0.92 0.57 - 1.25 [facility] mg/dL [facility] Glucose 105 70 - 105 mg/dL [facility] Calcium 8.5 8.4 - 10.2 [facility] mg/dL [facility] EGFR 79Comment: ESTIMATED mL/min/1.73 sq [facility] GFR IS NOT m [facility] ACCURATE [place] CREATININE CLEARANCE IN PREDICTING GLOMERULAR FILTRATION RATE. ESTIMATED GFR IS NOT APPLICABLE FOR DIALYSIS PATIENTS. Specimen Blood Narrative Performed At [employer] ID - [facility] ICAL CENTER Performing Organization Address City/State/Zipcode Phone Number [facility] [address] [place] [address] CENTER SARS-CoV2/RT-PCR (Asymptomatic ONLY) (03/11/2020 12:24 PM CDT) SARS-COV2/RT-PCR Negative Not Detected, [facility] Negative, See [facility] external report CENTER for linked test SARS-COV-2 [facility] TINO [facility] PERFORMING LAB [facility] Specimen Other - Nasopharyngeal wall structure (b brayden structure) Narrative Performed At Negative result for this test determines that [facility] SARS-CoV-2 RNA was not present in the specimen above the Limit of Detection (LOD). However, Negative results do not preclude SARS-CoV-2 infection and should not be used as the sole basis for treatment or patient management decisions. Negative results must be combined with clinical observations, patient history, and epidemiological information. A false negative result may occur if a specimen is improperly collected, transported or handled. A false negative result should be considered if patient's recent exposures or clinical presentation indicate that COVID-19 (SARS-CoV-2) is likely and diagnostic tests for other causes of illness are negative. Re-testing should be considered in cases of suspected false negatives. The limit of detection for this assay is 800 copies/mL. This SARS CoV-2 test is a real-time RT-PCR test intended for the qualitative detection of nucleic acid from SARS-CoV-2 in a nasopharyngeal swab specimen collected from individuals suspected of COVID-19 by their healthcare provider. This test has not been Food and Drug Administration (FDA) cleared or approved. This is a modified version of an approved Emergency Use Authorization (EUA) and is in the process of review by the FDA. Once authorized by the FDA, the issued EUA will be effective until the declaration that circumstances exist justifying the authorization of the emergency use of in vitro diagnostic tests for detection and/or diagnosis of COVID-19 is terminated under Section 564(b)(2) of the Act or the EUA is revoked under Section 564(g) of the Act. Fact Sheet for Healthcare Providers: https://www.[employer]sites/default/files/pro duct/documents/Fact_Sheet_HC_Providers_Lyra_SA RS-CoV-2.pdf Fact Sheet for Healthcare Patients: https://www.[employer]sites/default/files/pro duct/documents/Fact_Sheet_Patients_Lyra_SARS-C oV-2.pdf Performing Laboratory: [place] [address] Performing Organization Address City/State/[place] [address] chest with IV contrast (03/10/2020 2:36 AM CDT) Specimen Narrative Performed At FINAL REPORT [facility] TECHNIQUE: CT scan of the chest WITH int ravenous contrast. Dose modulation, iterative reconstruction, an d/or weight-based adjustment of the mA/kV was utilized to reduce the radiation dose to as low as reasonably achievable. INDICATION: Blunt chest trauma. Concern for laryngeal nerve injury. COMPARISON: 03/09/2020 CT thoracic spine. FINDINGS: LINES/TUBES: None. LUNGS AND AIRWAYS: Moderate biapical par enchymal scarring and paraseptal emphysema. No consolidation o r suspicious lesion. Airways are clear. PLEURA: The pleural spaces are clear. HEART AND MEDIASTINUM: The visualized th yroid gland is normal. No mediastinal, hilar, or axillary lymphade nopathy. Heart is normal in size. Mild coronary and aortic atheroscl erotic calcifications. No pericardial effusion. SOFT TISSUES AND BONES: Compression defo rmity of the inferior endplate of T2 as seen on recent CT thor acic spine. Unremarkable soft tissues. UPPER ABDOMEN: Unremarkable. IMPRESSION: 1. No acute intrathoracic abnormality. N o evidence of laryngeal nerve impingement. 2. Mild compression deformity of T2 as s een on recent CT thoracic spine. Signed: Melania Malik MD Report Verified Date/Time: 03/10/2020 03:26:58 Procedure Note Interface, External Ris In - 03/10/2020 3:30 AM CDT FINAL REPORT TECHNIQUE: CT scan of the chest WITH int ravenous contrast. Dose modulation, iterative reconstruction, an d/or weight-based adjustment of the mA/kV was utilized to reduce the radiation dose to as low as reasonably achievable. INDICATION: Blunt chest trauma. Concern for laryngeal nerve injury. COMPARISON: 03/09/2020 CT thoracic spine. FINDINGS: LINES/TUBES: None. LUNGS AND AIRWAYS: Moderate biapical par enchymal scarring and paraseptal emphysema. No consolidation o r suspicious lesion. Airways are clear. PLEURA: The pleural spaces are clear. HEART AND MEDIASTINUM: The visualized th yroid gland is normal. No mediastinal, hilar, or axillary lymphade nopathy. Heart is normal in size. Mild coronary and aortic atheroscl erotic calcifications. No pericardial effusion. SOFT TISSUES AND BONES: Compression defo rmity of the inferior endplate of T2 as seen on recent CT thor acic spine. Unremarkable soft tissues. UPPER ABDOMEN: Unremarkable. IMPRESSION: 1. No acute intrathoracic abnormality. N o evidence of laryngeal nerve impingement. 2. Mild compression deformity of T2 as s een on recent CT thoracic spine. Signed: Melania Malik MD Report Verified Date/Time: 03/10/2020 0 3:26:58 Performing Organization Address City/State/Zipcode Phone Number [facility] CT neck soft tissue with IV contrast (03/10/2020 2:36 AM CDT) Specimen Narrative Performed At FINAL REPORT [facility] EXAM: CT, SOFT TISSUE NECK, CONTRAST CLINICAL INDICATION: Laryngeal nerve i njury. TECHNIQUE: Helical CT examination of the neck with IV contrast. Sagittal and coronal reformations were g enerated. This exam was performed according to our departmental dose-optimization program, which includes automated exposure contro l, adjustment of the mA and/or kV according to patient size and/ or use of iterative reconstruction technique. COMPARISON: None. FINDINGS: Aerodigestive Tract Structures: Nasophar ynx, oropharynx, oral cavity, larynx and hypopharynx are normal. No ev idence of vocal cord paralysis. No lesion in the expected cou rse of the laryngeal nerves. Lymph Nodes: No pathologic appearing cer vical lymph nodes. 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 Mild cerebral parenchymal volume loss. Included Orbits: Prior bilateral lens bass rgery. Paranasal Sinuses: Normal Tympanomastoid Cavities: Normal Vascular Structures: Minimally torturous ICAs without atherosclerotic disease or stenosis. Osseous Structures: Mild deformity of this inferior endplate of T2. Moderate multilevel degenerative disc di sease of the cervical spine. Included Lung Apices: Mild biapical pare nchymal scarring. IMPRESSION: No lesion or abnormality in the expected courses of the recurrent laryngeal nerves. Mild compression deformity of T2. Signed: Melania Malik MD Report Verified Date/Time: 03/10/2020 02:56:37 Procedure Note Interface, External Ris In - 03/10/2020 2:59 AM CDT FINAL REPORT EXAM: CT, SOFT TISSUE NECK, CONTRAST CLINICAL INDICATION: Laryngeal nerve in jury. TECHNIQUE: Helical CT examination of the neck with IV contrast. Sagittal and coronal reformations were g enerated. This exam was performed according to our departmental dose-optimization program, which includes automated exposure contro l, adjustment of the mA and/or kV according to patient size and/ or use of iterative reconstruction technique. COMPARISON: None. FINDINGS: Aerodigestive Tract Structures: Nasophar ynx, oropharynx, oral cavity, larynx and hypopharynx are normal. No ev idence of vocal cord paralysis. No lesion in the expected cou rse of the laryngeal nerves. Lymph Nodes: No pathologic appearing cer vical lymph nodes. 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 Mild cerebral parenchymal volume loss. Included Orbits: Prior bilateral lens bass rgery. Paranasal Sinuses: Normal Tympanomastoid Cavities: Normal Vascular Structures: Minimally torturous ICAs without atherosclerotic disease or stenosis. Osseous Structures: Mild deformity of t his inferior endplate of T2. Moderate multilevel degenerative disc di sease of the cervical spine. Included Lung Apices: Mild biapical pare nchymal scarring. IMPRESSION: No lesion or abnormality in the expected courses of the recurrent laryngeal nerves. Mild compression deformity of T2. Signed: Melania Malik MD Report Verified Date/Time: 03/10/2020 0 2:56:37 Performing Organization Address City/State/Zipcode Phone Number [facility] spine lumbar without IV contrast (03/09/2020 3:42 AM CDT) Specimen Narrative Performed At FINAL REPORT [facility] EXAM: CT thoracic spine without contrast . CT lumbar spine without contrast. CLINICAL HISTORY: Thoracic spine fractur e, traumatic. Evaluation of thoracic spine fracture. Lumbosacral spi ne fracture, traumatic. Evaluation for lumbar spine fracture. St atus post fall. TECHNIQUE: CT of the thoracic and lumbar spine was performed without intravenous contrast administration. T his exam was performed according to our departmental dose optim ization program which includes automated exposure control, adj ustment of the mA and/or kV according to patient's size and/or use o f iterative reconstructive technique. COMPARISON: None FINDINGS: Thoracic spine: There is a mild thoracic kyphosis. There is a mild compression fracture of the T2 vertebral body involving the anterior-inferior aspects. There is no retropulsion. The remaining vertebral body heights are intact. Vertebral body alignment is maintained. The articular f acets and posterior elements are intact. There is multilevel degenera tive disc disease as evidenced by disc space narrowing, endpl ate changes, vacuum disc phenomena and small osteophytes. There i s no significant spinal canal or neuroforaminal stenosis. There is no paravertebral hematoma. The visualized paraspinal soft tissues are unremarkable. There is cholelithiasis. There is nonspe cific nodular left adrenal gland thickening. There are calcificatio ns in the pancreas consistent with chronic pancreatitis. There are sub centimeter hyperdensities in the bilateral kidneys, which may represe nt proteinaceous or hemorrhagic cysts. There is a small hiat al hernia. Lumbar spine: Vertebral body heights are maintained. T here is a grade 1 anterolisthesis at L5/S1. There is a r ight L5 pars interarticularis defect. There is no acute fracture. There is mild multilevel degenerative d isc disease as evidenced by disc space narrowing, endplate Schmorl's nodes and small osteophytes. There is no lumbar facet arthropathy. L1/L2: Small diffuse disc bulge resultin g in mild spinal canal and neural foraminal stenosis. L2/L3:Small diffuse disc bulge resulting in mild spinal canal and neural foraminal stenosis. L3/L4: Diffuse disc bulge with ligamento us hypertrophy resulting in mild spinal canal stenosis. Severe lef t and moderate right neural foraminal stenosis. L4/L5: Small diffuse disc osteophyte com plex without significant spinal canal stenosis. Severe left and m oderate right neural foraminal stenosis. L5/S1: Small diffuse disc bulge with mil d spinal canal stenosis. Moderate bilateral neural foraminal sten osis. The visualized retroperitoneum is unrema rkable except for atherosclerotic calcifications of the ao rta. The prostate gland is mildly enlarged. There is mild diffuse m ural thickening of the urinary bladder which may be due to unde rdistention, cystitis and/or chronic bladder outlet obstruction. The paraspinal soft tissues are unremarkable. IMPRESSION: Thoracic spine: Mild T2 compression fracture, which appe ars recent. Degenerative changes as described. 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 No evidence of acute lumbar spine fractu re or traumatic malalignment. Degenerative changes as described. Mild diffuse mural thickening of the uri nary bladder, which may be due to underdistention, cystitis and/or chronic bladder outlet obstruction. Correlate clinically. Signed: Anibal Boudreaux MD Report Verified Date/Time: 03/09/2020 04:18:04 Procedure Note Interface, External Ris In - 03/09/2020 4:20 AM CDT FINAL REPORT EXAM: CT thoracic spine without contrast . CT lumbar spine without contrast. CLINICAL HISTORY: Thoracic spine fractur e, traumatic. Evaluation of thoracic spine fracture. Lumbosacral spi ne fracture, traumatic. Evaluation for lumbar spine fracture. St atus post fall. TECHNIQUE: CT of the thoracic and lumbar spine was performed without intravenous contrast administration. Th is exam was performed according to our departmental dose optim ization program which includes automated exposure control, adj ustment of the mA and/or kV according to patient's size and/or use o f iterative reconstructive technique. COMPARISON: None FINDINGS: Thoracic spine: There is a mild thoracic kyphosis. There is a mild compression fracture of the T2 vertebral body involving the anterior-inferior aspects. There is no retropulsion. The remaining vertebral body heights are intact. Vertebral body alignment is maintained. The articular f acets and posterior elements are intact. There is multilevel degenera tive disc disease as evidenced by disc space narrowing, endpl ate changes, vacuum disc phenomena and small osteophytes. There i s no significant spinal canal or neuroforaminal stenosis. There is no paravertebral hematoma. The visualized paraspinal soft tissues are unremarkable. There is cholelithiasis. There is nonspe cific nodular left adrenal gland thickening. There are calcificatio ns in the pancreas consistent with chronic pancreatitis. There are sub centimeter hyperdensities in the bilateral kidneys, which may represe nt proteinaceous or hemorrhagic cysts. There is a small hiat al hernia. Lumbar spine: Vertebral body heights are maintained. T here is a grade 1 anterolisthesis at L5/S1. There is a ri ght L5 pars interarticularis defect. There is no acute fracture. There is mild multilevel degenerative d isc disease as evidenced by disc space narrowing, endplate Schmorl's nodes and small osteophytes. There is no lumbar facet arthropathy. L1/L2: Small diffuse disc bulge resultin g in mild spinal canal and neural foraminal stenosis. L2/L3:Small diffuse disc bulge resulting in mild spinal canal and neural foraminal stenosis. L3/L4: Diffuse disc bulge with ligamento us hypertrophy resulting in mild spinal canal stenosis. Severe left and moderate right neural foraminal stenosis. L4/L5: Small diffuse disc osteophyte com plex without significant spinal canal stenosis. Severe left and m oderate right neural foraminal stenosis. L5/S1: Small diffuse disc bulge with mil d spinal canal stenosis. Moderate bilateral neural foraminal sten osis. The visualized retroperitoneum is unrema rkable except for atherosclerotic calcifications of the ao rta. The prostate gland is mildly enlarged. There is mild diffuse m ural thickening of the urinary bladder which may be due to unde rdistention, cystitis and/or chronic bladder outlet obstruction. The paraspinal soft tissues are unremarkable. IMPRESSION: Thoracic spine: Mild T2 compression fracture, which appe ars recent. Degenerative changes as described. 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 No evidence of acute lumbar spine fractu re or traumatic malalignment. Degenerative changes as described. Mild diffuse mural thickening of the uri nary bladder, which may be due to underdistention, cystitis and/or chronic bladder outlet obstruction. Correlate clinically. Signed: Anibal Boudreaux MD Report Verified Date/Time: 03/09/2020 0 4:18:04 Performing Organization Address City/State/Zipcode Phone Number [facility] spine thoracic without IV contrast (03/09/2020 3:42 AM CDT) Specimen Narrative Performed At FINAL REPORT [facility] EXAM: CT thoracic spine without contrast . CT lumbar spine without contrast. CLINICAL HISTORY: Thoracic spine fractur e, traumatic. Evaluation of thoracic spine fracture. Lumbosacral spi ne fracture, traumatic. Evaluation for lumbar spine fracture. St atus post fall. TECHNIQUE: CT of the thoracic and lumbar spine was performed without intravenous contrast administration. T his exam was performed according to our departmental dose optim ization program which includes automated exposure control, adj ustment of the mA and/or kV according to patient's size and/or use o f iterative reconstructive technique. COMPARISON: None FINDINGS: Thoracic spine: There is a mild thoracic kyphosis. There is a mild compression fracture of the T2 vertebral body involving the anterior-inferior aspects. There is no retropulsion. The remaining vertebral body heights are intact. Vertebral body alignment is maintained. The articular f acets and posterior elements are intact. There is multilevel degenera tive disc disease as evidenced by disc space narrowing, endpl ate changes, vacuum disc phenomena and small osteophytes. There i s no significant spinal canal or neuroforaminal stenosis. There is no paravertebral hematoma. The visualized paraspinal soft tissues are unremarkable. There is cholelithiasis. There is nonspe cific nodular left adrenal gland thickening. There are calcificatio ns in the pancreas consistent with chronic pancreatitis. There are sub centimeter hyperdensities in the bilateral kidneys, which may represe nt proteinaceous or hemorrhagic cysts. There is a small hiat al hernia. Lumbar spine: Vertebral body heights are maintained. T here is a grade 1 anterolisthesis at L5/S1. There is a r ight L5 pars interarticularis defect. There is no acute fracture. There is mild multilevel degenerative d isc disease as evidenced by disc space narrowing, endplate Schmorl's nodes and small osteophytes. There is no lumbar facet arthropathy. L1/L2: Small diffuse disc bulge resultin g in mild spinal canal and neural foraminal stenosis. L2/L3:Small diffuse disc bulge resulting in mild spinal canal and neural foraminal stenosis. L3/L4: Diffuse disc bulge with ligamento us hypertrophy resulting in mild spinal canal stenosis. Severe lef t and moderate right neural foraminal stenosis. L4/L5: Small diffuse disc osteophyte com plex without significant spinal canal stenosis. Severe left and m oderate right neural foraminal stenosis. L5/S1: Small diffuse disc bulge with mil d spinal canal stenosis. Moderate bilateral neural foraminal sten osis. The visualized retroperitoneum is unrema rkable except for atherosclerotic calcifications of the ao rta. The prostate gland is mildly enlarged. There is mild diffuse m ural thickening of the urinary bladder which may be due to unde rdistention, cystitis and/or chronic bladder outlet obstruction. The paraspinal soft tissues are unremarkable. IMPRESSION: Thoracic spine: Mild T2 compression fracture, which appe ars recent. Degenerative changes as described. 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 No evidence of acute lumbar spine fractu re or traumatic malalignment. Degenerative changes as described. Mild diffuse mural thickening of the uri nary bladder, which may be due to underdistention, cystitis and/or chronic bladder outlet obstruction. Correlate clinically. Signed: Anibal Boudreaux MD Report Verified Date/Time: 03/09/2020 04:18:04 Procedure Note Interface, External Ris In - 03/09/2020 4:20 AM CDT FINAL REPORT EXAM: CT thoracic spine without contrast . CT lumbar spine without contrast. CLINICAL HISTORY: Thoracic spine fractur e, traumatic. Evaluation of thoracic spine fracture. Lumbosacral spi ne fracture, traumatic. Evaluation for lumbar spine fracture. St atus post fall. TECHNIQUE: CT of the thoracic and lumbar spine was performed without intravenous contrast administration. Th is exam was performed according to our departmental dose optim ization program which includes automated exposure control, adj ustment of the mA and/or kV according to patient's size and/or use o f iterative reconstructive technique. COMPARISON: None FINDINGS: Thoracic spine: There is a mild thoracic kyphosis. There is a mild compression fracture of the T2 vertebral body involving the anterior-inferior aspects. There is no retropulsion. The remaining vertebral body heights are intact. Vertebral body alignment is maintained. The articular f acets and posterior elements are intact. There is multilevel degenera tive disc disease as evidenced by disc space narrowing, endpl ate changes, vacuum disc phenomena and small osteophytes. There i s no significant spinal canal or neuroforaminal stenosis. There is no paravertebral hematoma. The visualized paraspinal soft tissues are unremarkable. There is cholelithiasis. There is nonspe cific nodular left adrenal gland thickening. There are calcificatio ns in the pancreas consistent with chronic pancreatitis. There are sub centimeter hyperdensities in the bilateral kidneys, which may represe nt proteinaceous or hemorrhagic cysts. There is a small hiat al hernia. Lumbar spine: Vertebral body heights are maintained. T here is a grade 1 anterolisthesis at L5/S1. There is a ri ght L5 pars interarticularis defect. There is no acute fracture. There is mild multilevel degenerative d isc disease as evidenced by disc space narrowing, endplate Schmorl's nodes and small osteophytes. There is no lumbar facet arthropathy. L1/L2: Small diffuse disc bulge resultin g in mild spinal canal and neural foraminal stenosis. L2/L3:Small diffuse disc bulge resulting in mild spinal canal and neural foraminal stenosis. L3/L4: Diffuse disc bulge with ligamento us hypertrophy resulting in mild spinal canal stenosis. Severe left and moderate right neural foraminal stenosis. L4/L5: Small diffuse disc osteophyte com plex without significant spinal canal stenosis. Severe left and m oderate right neural foraminal stenosis. L5/S1: Small diffuse disc bulge with mil d spinal canal stenosis. Moderate bilateral neural foraminal sten osis. The visualized retroperitoneum is unrema rkable except for atherosclerotic calcifications of the ao rta. The prostate gland is mildly enlarged. There is mild diffuse m ural thickening of the urinary bladder which may be due to unde rdistention, cystitis and/or chronic bladder outlet obstruction. The paraspinal soft tissues are unremarkable. IMPRESSION: Thoracic spine: Mild T2 compression fracture, which appe ars recent. Degenerative changes as described. 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 No evidence of acute lumbar spine fractu re or traumatic malalignment. Degenerative changes as described. Mild diffuse mural thickening of the uri nary bladder, which may be due to underdistention, cystitis and/or chronic bladder outlet obstruction. Correlate clinically. Signed: Anibal Boudreaux MD Report Verified Date/Time: 03/09/2020 0 4:18:04 Performing Organization Address City/State/Zipcode Phone Number [facility] XR spine thoracic 2 views (03/08/2020 8:51 PM CDT) Specimen Narrative Performed At FINAL REPORT [facility] RAD, SPINE, THORACIC, 2 VIEWS CLINICAL INDICATION: standing thoracic XR to evaluate kyphotic deformity, t2 fracture COMPARISON: None FINDINGS: Frontal, lateral and extremiti es views of the thoracic spine were obtained. There is a mild thoracic kyphosis. There is no discernible thoracic vertebral body compression fracture on t he views provided. Vertebral body alignment is maintained. There are multilevel spinal osteophytes. The intervertebral disc space heights are maintained. The parasp inal regions are unremarkable. There are atherosclerotic calcifications of the thoracic aorta. There is a grade 1 anterolisthesis at C4 /C5. IMPRESSION: Mild thoracic kyphosis. No discernible thoracic vertebral body c ompression fracture on the study. Consider CT for further evaluatio n. Signed: Anibal Boudreaux MD Report Verified Date/Time: 03/08/2020 21:06:27 Procedure Note Interface, External Ris In - 03/08/2020 9:09 PM CDT FINAL REPORT RAD, SPINE, THORACIC, 2 VIEWS CLINICAL INDICATION: standing thoracic XR to evaluate kyphotic deformity, t2 fracture COMPARISON: None FINDINGS: Frontal, lateral and extremiti es views of the thoracic spine were obtained. There is a mild thoracic kyphosis. There is no discernible thoracic vertebral body compression fracture on t he views provided. Vertebral body alignment is maintained. There are multilevel spinal osteophytes. The intervertebral disc space heights are maintained. The parasp inal regions are unremarkable. There are atherosclerotic calcifications of the thoracic aorta. There is a grade 1 anterolisthesis at C4 /C5. IMPRESSION: Mild thoracic kyphosis. No discernible thoracic vertebral body c ompression fracture on the study. Consider CT for further evaluatio n. Signed: Anibal Boudreaux MD Report Verified Date/Time: 03/08/2020 2 1:06:27 Performing Organization Address City/State/Zipcode Phone Number [facility] Prothrombin time/INR (03/08/2020 5:28 PM CDT) Pathologist Sig nature Protime 13.8 11.9 - 14.2 seconds [facility] INR 1.09 <=5.90 [facility] Specimen Blood Narrative Performed At Effective 12/06/2018: PT Reference Range [facility] Change New: 11.9-14.2 Previous: 11.7-14.7 RECOMMENDED COUMADIN/WARFARIN INR THERAPY RANGES STANDARD DOSE: 2.0-3.0 Includes: PROPHYLAXIS for venous thrombosis, systemic embolization; TREATMENT for venous thrombosis and/or pulmonary embolus. HIGH RISK: Target INR is 2.5-3.5 for patients wiht mechanical heart valves. Performing Organization Address City/State/Zipcode Phone Number [address] [address] CENTER Comprehensive metabolic panel (03/08/2020 5:28 PM CDT) Protein, Total [facility] Comment: [facility] Specimen markedly hemolyzedL IS verified .Redraw called to [id number] [facility] This is a corrected result. Previous result was 7.5 gm/dL on 03/08/2020 at [address] [facility] Comment: [facility] Specimen markedly hemolyzedL IS verified .Redraw called to [id number] [facility] This is a corrected result. Previous result was 4.0 g/dL on 03/08/2020 at [address] [facility] Phosphatase Comment: [facility] LIS verified .Redraw called to [id number] [facility] This is a corrected result. Previous result was 86 U/L on 03/08/2020 at 1821 CDT Total Bilirubin [facility] Comment: [facility] Specimen markedly [facility]olyzed [facility] This is a corrected result. Previous result was 1.2 mg/dL on 03/08/2020 at [address] [facility] Comment: [facility] LIS verified .Redraw called to [id number] [facility] This is a corrected result. Previous result was 140 meq/L on 03/08/2020 at [address] [facility] Comment: [facility] Specimen markedly [facility]olyzed [facility] This is a corrected result. Previous result was 4.4 meq/L on 03/08/2020 at [address] [facility] Comment: [facility] LIS verified .Redraw called to [id number] [facility] This is a corrected result. Previous result was 101 meq/L on 03/08/2020 at [address] [facility] Comment: [facility] LIS verified .Redraw called to [id number] [facility] This is a corrected result. Previous result was 29 meq/L on 03/08/2020 at [address] [facility] Comment: [facility] LIS verified .Redraw called to B.[id number] [facility] This is a corrected result. Previous result was 18 mg/dL on 03/08/2020 at [address] [facility] Comment: [facility] Specimen markedly hemolyzed [facility] This is a corrected result. Previous result was 0.96 mg/dL on 03/08/2020 at [address] [facility] Comment: [facility] LIS verified .Redraw called to B.[id number] hemolyzed [facility] This is a corrected result. Previous result was 110 mg/dL on 03/08/2020 at 1821 CDT Calcium [facility] Comment: [facility] LIS verified .Redraw called to B.[id number] hemolyzed [facility] This is a corrected result. Previous result was 8.9 mg/dL on 03/08/2020 at 1821 CDT AST [facility] Comment: [facility] Specimen markedly hemolyzed [facility] This is a corrected result. Previous result was 35 U/L on 03/08/2020 at 1821 CDT ALT [facility] Comment: [facility] Specimen markedly hemolyzed [facility] This is a corrected result. Previous result was 24 U/L on 03/08/2020 at 1821 CDT EGFR [facility] Comment: [facility] ESTIMATED GFR IS NOT ACCU RATE CREATININE CLEARANCE IN PREDICTING GLOMERULAR FILTRATION RATE. ESTIMATED GFR IS NOT APPLICABLE FOR DIALYSIS PATIENTS.LIS verified .Redraw called to B.[id number] [facility] This is a corrected result. Previous result was 75 mL/min/1.73 sq m on 03/08/2020 at 1821 CDT Specimen Blood Narrative Performed At [employer] ID - [id number] [facility] Performing Organization Address City/State/Zipcode Phone Number [facility] [address] [place] [address] CENTER ECG 12 lead (03/08/2020 5:10 PM CDT) Specimen Narrative Performed At Ventricular Rate 76 BPM [facility] Atrial Rate 76 BPM P-R Interval 174 ms QRS Duration 152 ms Q-T Interval 440 ms QTC Calculation(Bazett) 495 ms P [place] 40 degrees R [place] 41 degrees T [place] 24 degrees Normal sinus rhythm Right bundle branch block Nonspecific ST and T wave abnormality Prolonged QT Abnormal ECG No previous ECGs available Confirmed by Suellen STOREY BASANT ([id number]) on 03/09/2020 9: 45:03 AM Procedure Note Interface, External Ris In - 03/09/2020 9:45 AM CDT Ventricular Rate 76 BPM Atrial Rate 76 BPM P-R Interval 174 ms QRS Duration 152 ms Q-T Interval 440 ms QTC Calculation(Bazett) 495 ms P [place] 40 degrees R [place] 41 degrees T [place] 24 degrees Normal sinus rhythm Right bundle branch block Nonspecific ST and T wave abnormality Prolonged QT Abnormal ECG No previous ECGs available Confirmed by Suellen STOREY, FABI ([id number]) [place] 03/09/2020 9:45:03 AM Performing Organization Address City/State/Zipcode Phone Number [facility] M[facility] XR chest 1 view portable / bedside (03/08/2020 5:00 PM CDT) Specimen Narrative Performed At FINAL REPORT [facility] History: Preoperative evaluation. FINDINGS: Chest, single view: Single AP view of the chest shows a norm al appearing heart and mediastinum. Lungs are clear, free of ed robi, focal consolidation or visible effusions. No pneumothorax. Bone s are unremarkable. IMPRESSION: 1. Negative for acute cardiopulmonary di sease. Signed: Dori Estrada MD Report Verified Date/Time: 03/08/2020 17:47:07 Reading Location: [address] [employer] Reading Room Procedure Note Interface, External Ris In - 03/08/2020 5:49 PM CDT FINAL REPORT History: Preoperative evaluation. FINDINGS: Chest, single view: Single AP view of the chest shows a norm al appearing heart and mediastinum. Lungs are clear, free of ed robi, focal consolidation or visible effusions. No pneumothorax. Bone s are unremarkable. IMPRESSION: 1. Negative for acute cardiopulmonary di sease. Signed: Dori Estrada MD Report Verified Date/Time: 03/08/2020 1 7:47:07 Reading Location: [facility] [employer] Reading Room Performing Organization Address City/State/[facility] Phone Number [facility] after 06/15/2019 Insurance Payer Benefit Plan / Subscriber ID Effective Dates Phone Addre ss Type Group MEDICARE MEDICARE A B [id number] 2001-Present Medicare MEDICARE MEDICARE A B [id number] 2001-Present Medicare AETNA - [place]GD CARE AETNA INDEMNITY [id number] 2013-Present Comm NON CONTR AETNA - [place] CARE AETNA INDEMNITY [id number] 2013-Present Comm NON CONTR Advance Directives For more information, please contact: [phone] Code Status Date Activated Date Inactivated Comments Full Code 03/08/2020 4:22 PM 03/12/2020 3:54 PM This code status was determined by: Patient Full Code 06/08/2016 11:07 AM 06/10/2016 4:33 PM This code status was determined by: Patient Full Code 06/08/2016 5:52 AM 06/08/2016 11:07 AM This code status was determined by: Patient
--- OUTSIDE RECORDS SUMMARY | 2020-06-15 11:21 | XMS REPORT | Continuity of Care Document ---
:1935 Author Organization [facility] t Address [address] [place] [address] Care Team Providers Name Role Phone Sharpless Primary Care Physician Adriana RICHARD, P. Attending Clinician Nico RICHARD Attending Clinician Marco A Love MD Attending Clinician Lizz BECERRA Attending Clinician Unavailable NICO Admitting Clinician Unavailable Payers Payer Name Policy Type Policy Effective Date Expiration Date Sour ce Number MEDICAREMEDICARE A [id number] [address] [facility] [id number] 00:00:00 - Medical esent[facility]ic[facility] Center AETNA - MGD CAREAETNA [id number] [address] [facility] INDEMNITY NON 00:00:00 - Medical FEHPJosnag82450/07/2013 Ce nter -PresentComm Problems Condition Condition Condition Status Onset Resolution Last Treating Co mments Source Name Details Category Date Date Treatment Clinician Date Closed T2 Closed T2 Disease Active [facility] Glaucoma Glaucoma Disease Active 2015-07 [facility] 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 Social History Social Habit Start Date Stop Date Quantity Comments Source Sex Assigned At [facility] Cigarettes smoked 2020-04-10 2020-04-10 [facility] - current (pack per 00:00:00 00:00:00 Medical Center day) - Reported Cigarette 2020-04-10 2020-04-[address] [facility] [address] [facility] - pack-years 00:00:00 00:00:00 [facility] Tobacco use and 2020-04-10 2020-04-10 Former user REINALDO Jones - exposure 00:00:00 00:00:00 [facility] Alcohol intake 2020-04-10 2020-04-10 Current drinker REINALDO S t [facility] - 00:00:00 00:00:00 of alcohol [facility] Center (finding) History of tobacco 1984-07-11 [facility] - use [facility] Smoking Status Start Date Stop Date Source Former smoker 2020-04-10 00:00:00 2020-04-10 00:00:00 [facility] Medications Ordered Filled Start Stop Current Ordering Indication Dosage Frequency Signature Comments Components Source Medication Medication Date Date Medication? Clinician (SIG) Name Name nisoldipine 2019-07 Yes 17mg QD Take [address] [facility] (SULAR) 17 0-01 by mouth [facility] - MG 24 hr 13:30: daily. Medical tablet [address] [place] ramipriL 2019-07 Yes 10mg QD Take [address] (ALTACE) 10 0-01 by mouth Luke s - MG capsule 13:30: daily. Medic al [address] [place] clopidogreL 2019-07 Yes 75mg QD Take [address] (PLAVIX) 75 0-01 by mouth Luke s - mg tablet 13:30: daily. Medica l [address] [place] furosemide 2019-07 Yes 40mg QD Take [address] (LASIX) 40 0-01 by mouth [facility] - MG tablet 13:30: daily. Medica l [address] [place] atorvastati 2019-07 Yes 40mg QD Take [address] [address] n (LIPITOR) 0-01 by mouth Luke s - 40 MG 13:30: daily. Medical tablet 46 Center latanoprost 2019-07 Yes 1[drp] QD Place [address] (XALATAN) 0-01 drop into [facility] - 0.005 % 13:30: both eyes Medic al ophthalmic 46 nightly. Cente r solution cycloSPORIN 2019-07 Yes 1[drp] Place [address] E 0-01 drop into [facility] - (RESTASIS) 13:30: both eyes Me dical 0.05 % 46 every 12 Center ophthalmic (twelve) emulsion hours. brimonidine 2019-07 Yes 1[drp] Place [address] -timoloL 0-01 drop into [facility] - (COMBIGAN) 13:30: both eyes Me dical 0.2-0.5 % 46 every 12 Center ophthalmic (twelve) solution hours. mag Yes 35mL Take [address] [facility] [address] hydrox/alum 9-02 mLs by [facility] - inum 00:00: mouth Medical hyd/simeth 00 every 6 Center (GI (six) COCKTAIL hours as COMPOUNDED) needed solution (dysphagia ). nisoldipine 2015-07 Yes 17mg QD Take [address] [facility] (SULAR) 17 2-02 tablet (17 Butch es - MG 24 hr 00:00: mg total) Medi anne marie tablet 00 by mouth Center daily. ramipril 2015-07 Yes 10mg QD Take [address] (ALTACE) 10 2-01 by mouth Luke s - MG capsule 14:33: daily. Medic al [address] [place] VIT 2015-07 Yes 1{capsu Q.5D Take [address] C/E/ZN/ANA 2-01 le} capsule by kes - R/LUTEIN/ZE 14:33: mouth 2 Med ical AXAN 10 (two) Center (PRESERVISI times ON AREDS 2 daily. ORAL) travoprost 2015-07 Yes 1[drp] QD Place [address] (TRAVATAN 2-01 drop into [facility] - Z) 0.004 % 14:33: both eyes Me dical Drop 10 nightly. [place] ophthalmic drops BRIMONIDINE 2015-07 Yes 1[drp] Q.5D Place [address] TARTRATE/TI 2-01 drop into [facility] es - MOLOL 14:33: both eyes Medical (COMBIGAN 10 2 (two) Center OPHT) times daily. cycloSPORIN 2015-07 Yes 1[drp] Q.5D Place [address] E 2-01 drop into [facility] - (RESTASIS) 14:33: both eyes Me dical 0.05 % 10 2 (two) Center ophthalmic times emulsion daily. aspirin 81 2015-07 Yes 81mg QD Take 1 [facility] t MG chewable 2-01 tablet (81 Elva kes - tablet 00:00: mg total) Medica l 00 by mouth Center daily. clopidogrel 2015-07 Yes 75mg QD Take [address] (PLAVIX) 75 2-01 tablet (75 Elva kes - mg tablet 00:00: mg total) Med ical 00 by mouth Center daily. pantoprazol 2015-07 Yes 40mg QD Take [address] [facility] [address] e 2-01 tablet (40 [facility] - (PROTONIX) 00:00: mg total) Me dical 40 MG 00 by mouth Center tablet daily. Vital Signs Vital Name Observation Time Observation Value Comments Source Systolic blood 2020-03-12 12:28:00 117 mm[Hg] [facility] Diastolic blood 2020-03-12 12:28:00 58 mm[Hg] [facility] Heart rate 2020-03-12 12:28:00 73 /min [facility] Body temperature 2020-03-12 12:28:00 36 Nelda [facility] Respiratory rate 2020-03-12 12:28:00 18 /min [facility] Oxygen saturation in 2020-03-12 12:28:00 94 /min [facility] Arterial blood by Medical Ce nter Pulse oximetry Body height 2020-03-08 16:00:00 177.8 cm [facility] Body weight 2020-03-08 16:00:00 76.658 kg [facility] BMI 2020-03-08 16:00:00 24.25 kg/m2 [facility] Procedures Procedure Date / Time Performed Performing Clinician Sourc e XR ESOPH SWALLOW FUNCTION 2020-03-12 11:18:00 Erum Shaw CH, I [facility] - W/CINE VIDEO [facility] BASIC METABOLIC PANEL (7) 2020-03-12 04:01:00 Nico [facility] MAGNESIUM 2020-03-12 04:01:00 Nico [facility] CBC W/PLT COUNT & AUTO 2020-03-12 04:01:00 Nico [facility] SARS-COV2/RT-PCR ([facility] & 2020-03-11 12:24:00 Funmi Love [facility] - REF LABS) [facility] BASIC METABOLIC PANEL (7) 2020-03-11 04:12:00 Nico [facility] MAGNESIUM 2020-03-11 04:12:00 Nico [facility] CBC W/PLT COUNT & AUTO 2020-03-11 04:12:00 Nico [facility] BASIC METABOLIC PANEL (7) 2020-03-10 04:11:00 Nico [facility] MAGNESIUM 2020-03-10 04:11:00 Nico [facility] CBC W/PLT COUNT & AUTO 2020-03-10 04:11:00 Nico [facility] CT NECK SOFT TISSUE WITH 2020-03-10 02:36:00 Nico [facility] IV CONTRAST [facility] CHEST WITH IV CONTRAST 2020-03-10 02:36:00 Nico [facility] BASIC METABOLIC PANEL (7) 2020-03-09 04:20:00 Nico [facility] MAGNESIUM 2020-03-09 04:20:00 Nico [facility] CBC W/PLT COUNT & AUTO 2020-03-09 04:20:00 Nico [facility] CT THORACIC SPINE WITHOUT 2020-03-09 03:42:00 Annel Gar [facility] IV CONTRAST [facility] CT LUMBAR SPINE WITHOUT 2020-03-09 03:42:00 Annel Gar [facility] CONTRAST [facility] XR SPINE THORACIC 2 VIEWS 2020-03-08 20:51:00 Annel Gar [facility] COMPREHENSIVE METABOLIC 2020-03-08 17:28:00 Erum Shaw [facility] PROTHROMBIN TIME/INR 2020-03-08 17:28:00 Nico [facility] CBC W/PLT COUNT & AUTO 2020-03-08 17:28:00 Erum Shaw [facility] S t [facility] ECG 12-LEAD 2020-03-08 17:10:44 Unknown, Hl7 Doctor [facility] XR CHEST 1 VIEW 2020-03-08 17:00:00 Erum Shaw [facility] PORTABLE/BEDSIDE [facility] Plan of Care Planned Activity Planned Date Details Comments Source Future Scheduled 2020-03-11 INFLUENZA VACCINE (#1) [facility] - Test 00:00:00 [code = INFLUENZA Medical Ce nter VACCINE (#1)] Future Scheduled 2002-11-09 MEDICARE ANNUAL [facility] - Test 00:00:00 WELLNESS (YEAR 2 or Medical Center FIRST YEAR if no IPPE) [code = MEDICARE ANNUAL WELLNESS (YEAR 2 or FIRST YEAR if no IPPE)] Future Scheduled 2001 PNEUMOCOCCAL 65+ YRS [facility] Test 00:00:00 (1 of 1 - [facility] [id number] PCV13) [code = PNEUMOCOCCAL 65+ YRS (1 of 1 - [id number] PCV13)] Results Test Description Test Time Test Comments Results Result [facility] e Comments HAYES JORDAN, 2020-03-12 Reason for FINAL REPORT SWALLOW FUNCTION, 13:41:00 exam:->DYSPHAG PATIENT ID: WITH CINE OR IA TO SOLIDS [id number] Modified VIDEO barium swallow exam with speech pathology service CLINICAL HISTORY: DYSPHAGIA TO SOLIDS IMPRESSION: Please see the speech pathology service report for details. Barium contrast of multiple consistencies is given to the patient to swallow. Fluoroscopic observation is performed during swallowing. No aspiration Fluoro time: 2.1 minutes Number of images: 22 Signed: Alexis Thacker Verified Date/Time: 03/12/2020 13:41:11 Reading Location: [facility] C013X Ortho Consult Reading Room AN pollard swallow 2020-03-12 Interface, External [facility] funct with cine 13:41:00 Ris In - 03/12/2020 - Medical video 1:43 PM CDTFINAL Center REPORT Modified barium swallow exam with speech pathology service CLINICAL HISTORY: DYSPHAGIA TO SOLIDS IMPRESSION: Please see the speech pathology service report for details. Barium contrast of multiple consistencies is given to the patient to swallow. Fluoroscopic observation is performed during swallowing. No aspiration Fluoro time: 2.1 minutes Number of images: 22 Signed: Alexis Thackerepdavid Verified Date/Time: 03/12/2020 13:41:11 Reading Location: [facility] B1 C013X Ortho Consult Reading Room Basic metabolic panel 2020-03-12 04:51:00 Test Item Value Reference Range Interpretation Comme nts Sodium (test code = 141 meq/L 574-262 4041-2) Potassium (test code = 3.9 meq/L 3.5-5.1 2823-3) Chloride (test code = 105 meq/L 98-107 2075-0) CO2 (test code = 28 meq/L 22-29 2028-9) BUN (test code = 17 mg/dL 7-21 3094-0) Creatinine (test code = 0.92 mg/dL 0.57-1.25 2160-0) Glucose (test code = 105 mg/dL 70-105 2345-7) Calcium (test code = 8.5 mg/dL 8.4-10.2 86024-2) EGFR (test code = 79 mL/min/1.73 [place] [address]-3) ACCURATE CRE ATININE CLEARANCE IN UT EDICTING GLOMERULAR FILT RATION RATE. ESTIMATED GFR IS NOT APPLICABLE FOR DIALYSIS PATIEN TS. AKHIL (test code = AKHIL) Doorshaker ID - EDASI [facility] 04:51[facility]00 Test Item Value Reference Range Interpretation Comments Magnesium (test code = 1.9 mg/dL 1.6-2.6 39318-9) AKHIL (test code = AKHIL) Doorshaker ID - EDASI Lab Interpretation (test Normal code = 97050-5) [facility]00 Test Item Value Reference Range Interpretation Comments MAGNESIUM (BEAKER) (test code = 1.9 mg/dL 1.6-2.6 627) Doorshaker ID - EDASIBASIC METABOLIC [id number] 04:51:00 Test Item Value Reference Range Interpretation Comments SODIUM (BEAKER) 141 meq/L 136-145 (test code = 381) POTASSIUM (BEAKER) 3.9 meq/L 3.5-5.1 (test code = 379) CHLORIDE (BEAKER) 105 meq/L 98-107 (test code = 382) CO2 (BEAKER) (test 28 meq/L 22-29 code = 355) BLOOD UREA NITROGEN 17 mg/dL 7-21 (BEAKER) (test code = 354) CREATININE (BEAKER) 0.92 mg/dL 0.57-1.25 (test code = 358) GLUCOSE RANDOM 105 mg/dL 70-105 (BEAKER) (test code = 652) CALCIUM (BEAKER) 8.5 mg/dL 8.4-10.2 (test code = 697) EGFR (BEAKER) (test 79 mL/min/1.73 ESTIMA ELIJAH GFR IS code = 1092) sq m NOT ACCURATE CREATININE CLEARANCE IN PREDICTING GLOMERULAR FILTRATION RATE . ESTIMATED GFR I S NOT APPLICABLE FOR DIALYSIS PATIEN TS. Doorshaker ID - EDASICBC with platelet count + automated [id number] 04:20:00 Test Item Value Reference Range Interpretation Comments WBC (test code = 6690-2) 7.7 3.5- 10.5 K/L RBC (test code = 789-8) 4.41 4.63- 6.08 M/L L MCHC (test code = 786-4) 33.3 32.3- 36.5 GM/DL Hematocrit (test code = 4544-3) 41.8 % 40.1-51 MCV (test code = 787-2) 94.8 fL 79-92.2 H MCH (test code = 785-6) 31.5 pg 25.7-32.2 RDW (test code = 788-0) 12.4 % 11.6-14.4 Platelets (test code = 777-3) 165 150- 450 K/CU MM MPV (test code = 38202-9) 10.9 fL 9.4-12.4 nRBC (test code = 413) 0 0- 0 /100 WBC % Neutros (test code = 429) 57 % % Lymphs (test code = 430) 27 % % Monos (test code = 431) 12 % % Eos (test code = 432) 3 % % Baso (test code = 437) 1 % # Neutros (test code = 670) 4.40 1.78- 5.38 K/L # Lymphs (test code = 414) 2.06 1.32- 3.57 K/L # Monos (test code = 415) 0.94 0.30- 0.82 K/L H # Eos (test code = 416) 0.22 0.04- 0.54 K/L # Baso (test code = 417) 0.04 0.01- 0.08 K/L Immature Granulocytes-Relative 0 % 0-1 (test code = 2801) Lab Interpretation (test code = Abnormal 05174-2) [facility] W/PLT COUNT & AUTO [id number] 04:20:00 Test Item Value Reference Range Interpretation Comments WHITE BLOOD CELL COUNT (BEAKER) 7.7 K/ L 3.5-10.5 (test code = 775) RED BLOOD CELL COUNT (BEAKER) 4.41 M/ L 4.63-6.08 L (test code = 761) HEMOGLOBIN (BEAKER) (test code = 13.9 GM/DL 13.7-17.5 410) HEMATOCRIT (BEAKER) (test code = 41.8 % 40.1-51.0 411) MEAN CORPUSCULAR VOLUME (BEAKER) 94.8 fL 79.0-92.2 H (test code = 753) MEAN CORPUSCULAR HEMOGLOBIN 31.5 pg 25.7-32.2 (BEAKER) (test code = 751) MEAN CORPUSCULAR HEMOGLOBIN CONC 33.3 GM/DL 32.3-36.5 (BEAKER) (test code = 752) RED CELL DISTRIBUTION WIDTH 12.4 % 11.6-14.4 (BEAKER) (test code = 412) PLATELET COUNT (BEAKER) (test 165 K/CU MM 150-450 code = 756) MEAN PLATELET VOLUME (BEAKER) 10.9 fL 9.4-12.4 (test code = 754) NUCLEATED RED BLOOD CELLS 0 /100 WBC 0-0 (BEAKER) (test code = 413) NEUTROPHILS RELATIVE PERCENT 57 % (BEAKER) (test code = 429) LYMPHOCYTES RELATIVE PERCENT 27 % (BEAKER) (test code = 430) MONOCYTES RELATIVE PERCENT 12 % (BEAKER) (test code = 431) EOSINOPHILS RELATIVE PERCENT 3 % (BEAKER) (test code = 432) BASOPHILS RELATIVE PERCENT 1 % (BEAKER) (test code = 437) NEUTROPHILS ABSOLUTE COUNT 4.40 K/ L 1.78-5.38 (BEAKER) (test code = 670) LYMPHOCYTES ABSOLUTE COUNT 2.06 K/ L 1.32-3.57 (BEAKER) (test code = 414) MONOCYTES ABSOLUTE COUNT (BEAKER) 0.94 K/ L 0.30-0.82 H (test code = 415) EOSINOPHILS ABSOLUTE COUNT 0.22 K/ L 0.04-0.54 (BEAKER) (test code = 416) BASOPHILS ABSOLUTE COUNT (BEAKER) 0.04 K/ L 0.01-0.08 (test code = 417) IMMATURE GRANULOCYTES-RELATIVE 0 % 0-1 PERCENT (BEAKER) (test code = 2801) SARS-CoV2/RT-PCR (Asymptomatic ONLY)2020-03-11 22:05:00 Test Item Value Reference Range Interpretation Comments SARS-COV2/RT-PCR Negative Not Detected, (test code = Negative, See 59685-3) external report for linked test SARS-COV-2 [facility] PERFORMING LAB (test code = 45401-7) AKHIL (test code = Negative result for this AKHIL) test determines that SARS-CoV-2 RNA was not present in the [...] of the Act. Fact Sheet for Healthcare Providers:https://www.Digital Shadows/sites/default/f shama/product/documents/F act_Sheet_HC_Providers_L aub_PIKU-UuH-9.pdf Fact Sheet for Healthcare Patients:https://www.ReTargeter/sites/default/fi les/product/documents/Fa ct_Sheet_Patients_Lyra_S ARS-CoV-2.pdf Performing Laboratory:[facility] [facility] [place] [address] [facility] ([facility]F [facility])2020-03-11 22:05:00 Test Item Value Reference Range Interpretation Comments SARS-COV2/RT-PCR (test Negative Not Detected, Negative, code = 6948049) See external report for linked test SARS-COV-2 PERFORMING LAB [facility] (test code = 4421161) Negative result for this test determines that SARS-CoV-2 RNA was not present in the specimen above the Limit of Detection (LOD). However, Negative results do not preclude SARS-CoV-2 infection and should not be used as the sole basis for treatment or patient management decisions. Negative results mustbe combined with clinical observations, patient history, and epidemiological information. A false negative result may occur if a specimen is improperly collected, transported or handled. A false negative result should be considered if patient's recent exposures or clinical presentation indicate that COVID-19 (SARS-CoV-2) is likely and diagnostic tests for other causes of illness are negative. Re-testing should be considered in cases of suspected false negatives.The limit of detection for this assay is 800 copies/mL.This SARS CoV-2 test is a real-time RT-PCR test intended for the qualitative detection of nucleic acid from SARS-CoV-2 in a nasopharyngeal swab specimen collected from individuals susp ected of COVID-19 by their healthcare provider.This test has not been Food and Drug [...] is revoked under Section 564(g) of the Act.Fact Sheet for Healthcare Providers:https://www.Sirigen/sites/default/files/product/documents/Fact_Shee h_OO_Lzxwpdytg_Ivix_JGKD-XtY-7.pdfFact Sheet for Healthcare Patients:https://www.Sirigen/sites/default/files/product/ documents/Fpso_Krtuo_Oodbahey_Ateu_FNAN-FqP-4.pdfPerforming Laboratory:[facility], [place] [id number] 05:03:00 Test Item Value Reference Range Interpretation Comments MAGNESIUM (BEAKER) (test code = 2.0 mg/dL 1.6-2.6 627) Doorshaker ID - DBBASIC METABOLIC [id number] 05:03:00 Test Item Value Reference Range Interpretation Comments SODIUM (BEAKER) 137 meq/L 136-145 (test code = 381) POTASSIUM (BEAKER) 3.9 meq/L 3.5-5.1 (test code = 379) CHLORIDE (BEAKER) 102 meq/L 98-107 (test code = 382) CO2 (BEAKER) (test 27 meq/L 22-29 code = 355) BLOOD UREA NITROGEN 14 mg/dL 7-21 (BEAKER) (test code = 354) CREATININE (BEAKER) 0.93 mg/dL 0.57-1.25 (test code = 358) GLUCOSE RANDOM 114 mg/dL 70-105 H (BEAKER) (test code = 652) CALCIUM (BEAKER) 8.7 mg/dL 8.4-10.2 (test code = 697) EGFR (BEAKER) (test 78 mL/min/1.73 ESTIMA ELIJAH GFR IS code = 1092) sq m NOT ACCURATE CREATININE CLEARANCE IN PREDICTING GLOMERULAR FILTRATION RATE . ESTIMATED GFR I S NOT APPLICABLE FOR DIALYSIS PATIEN TS. Doorshaker ID - DBCBC W/PLT COUNT & AUTO [id number] 04:34:00 Test Item Value Reference Range Interpretation Comments WHITE BLOOD CELL COUNT (BEAKER) 10.1 K/ L 3.5-10.5 (test code = 775) RED BLOOD CELL COUNT (BEAKER) 4.35 M/ L 4.63-6.08 L (test code = 761) HEMOGLOBIN (BEAKER) (test code = 13.6 GM/DL 13.7-17.5 L 410) HEMATOCRIT (BEAKER) (test code = 41.3 % 40.1-51.0 411) MEAN CORPUSCULAR VOLUME (BEAKER) 94.9 fL 79.0-92.2 H (test code = 753) MEAN CORPUSCULAR HEMOGLOBIN 31.3 pg 25.7-32.2 (BEAKER) (test code = 751) MEAN CORPUSCULAR HEMOGLOBIN CONC 32.9 GM/DL 32.3-36.5 (BEAKER) (test code = 752) RED CELL DISTRIBUTION WIDTH 12.5 % 11.6-14.4 (BEAKER) (test code = 412) PLATELET COUNT (BEAKER) (test 169 K/CU MM 150-450 code = 756) MEAN PLATELET VOLUME (BEAKER) 11.0 fL 9.4-12.4 (test code = 754) NUCLEATED RED BLOOD CELLS 0 /100 WBC 0-0 (BEAKER) (test code = 413) NEUTROPHILS RELATIVE PERCENT 75 % (BEAKER) (test code = 429) LYMPHOCYTES RELATIVE PERCENT 16 % (BEAKER) (test code = 430) MONOCYTES RELATIVE PERCENT 9 % (BEAKER) (test code = 431) EOSINOPHILS RELATIVE PERCENT 0 % (BEAKER) (test code = 432) BASOPHILS RELATIVE PERCENT 0 % (BEAKER) (test code = 437) NEUTROPHILS ABSOLUTE COUNT 7.61 K/ L 1.78-5.38 H (BEAKER) (test code = 670) LYMPHOCYTES ABSOLUTE COUNT 1.58 K/ L 1.32-3.57 (BEAKER) (test code = 414) MONOCYTES ABSOLUTE COUNT (BEAKER) 0.87 K/ L 0.30-0.82 H (test code = 415) EOSINOPHILS ABSOLUTE COUNT 0.01 K/ L 0.04-0.54 L (BEAKER) (test code = 416) BASOPHILS ABSOLUTE COUNT (BEAKER) 0.03 K/ L 0.01-0.08 (test code = 417) IMMATURE GRANULOCYTES-RELATIVE 0 % 0-1 PERCENT (BEAKER) (test code = 2801) [id number] 05:00:00 Test Item Value Reference Range Interpretation Comments MAGNESIUM (BEAKER) (test code = 2.0 mg/dL 1.6-2.6 627) Doorshaker ID - PIAYA LBASIC METABOLIC [id number] 05:00:00 Test Item Value Reference Range Interpretation Comments SODIUM (BEAKER) 143 meq/L 136-145 (test code = 381) POTASSIUM (BEAKER) 3.7 meq/L 3.5-5.1 (test code = 379) CHLORIDE (BEAKER) 109 meq/L 98-107 H (test code = 382) CO2 (BEAKER) (test 26 meq/L 22-29 code = 355) BLOOD UREA NITROGEN 16 mg/dL 7-21 (BEAKER) (test code = 354) CREATININE (BEAKER) 0.82 mg/dL 0.57-1.25 (test code = 358) GLUCOSE RANDOM 102 mg/dL 70-105 (BEAKER) (test code = 652) CALCIUM (BEAKER) 8.2 mg/dL 8.4-10.2 L (test code = 697) EGFR (BEAKER) (test 90 mL/min/1.73 ESTIMA ELIJAH GFR IS code = 1092) sq m NOT ACCURATE CREATININE CLEARANCE IN PREDICTING GLOMERULAR FILTRATION RATE . ESTIMATED GFR I S NOT APPLICABLE FOR DIALYSIS PATIEN TS. Doorshaker ID - PIAYA LCBC W/PLT COUNT & AUTO [id number] 04:33:00 Test Item Value Reference Range Interpretation Comments WHITE BLOOD CELL COUNT (BEAKER) 6.8 K/ L 3.5-10.5 (test code = 775) RED BLOOD CELL COUNT (BEAKER) 4.20 M/ L 4.63-6.08 L (test code = 761) HEMOGLOBIN (BEAKER) (test code = 13.5 GM/DL 13.7-17.5 L 410) HEMATOCRIT (BEAKER) (test code = 40.2 % 40.1-51.0 411) MEAN CORPUSCULAR VOLUME (BEAKER) 95.7 fL 79.0-92.2 H (test code = 753) MEAN CORPUSCULAR HEMOGLOBIN 32.1 pg 25.7-32.2 (BEAKER) (test code = 751) MEAN CORPUSCULAR HEMOGLOBIN CONC 33.6 GM/DL 32.3-36.5 (BEAKER) (test code = 752) RED CELL DISTRIBUTION WIDTH 12.3 % 11.6-14.4 (BEAKER) (test code = 412) PLATELET COUNT (BEAKER) (test 181 K/CU MM 150-450 code = 756) MEAN PLATELET VOLUME (BEAKER) 11.2 fL 9.4-12.4 (test code = 754) NUCLEATED RED BLOOD CELLS 0 /100 WBC 0-0 (BEAKER) (test code = 413) NEUTROPHILS RELATIVE PERCENT 54 % (BEAKER) (test code = 429) LYMPHOCYTES RELATIVE PERCENT 33 % (BEAKER) (test code = 430) MONOCYTES RELATIVE PERCENT 11 % (BEAKER) (test code = 431) EOSINOPHILS RELATIVE PERCENT 2 % (BEAKER) (test code = 432) BASOPHILS RELATIVE PERCENT 0 % (BEAKER) (test code = 437) NEUTROPHILS ABSOLUTE COUNT 3.61 K/ L 1.78-5.38 (BEAKER) (test code = 670) LYMPHOCYTES ABSOLUTE COUNT 2.20 K/ L 1.32-3.57 (BEAKER) (test code = 414) MONOCYTES ABSOLUTE COUNT (BEAKER) 0.76 K/ L 0.30-0.82 (test code = 415) EOSINOPHILS ABSOLUTE COUNT 0.14 K/ L 0.04-0.54 (BEAKER) (test code = 416) BASOPHILS ABSOLUTE COUNT (BEAKER) 0.03 K/ L 0.01-0.08 (test code = 417) IMMATURE GRANULOCYTES-RELATIVE 0 % 0-1 PERCENT (BEAKER) (test code = 2801) CT, CHEST, WITH [id number] 03:26:00evaluate course of recurrent laryngeal nervesUnlisted Reason for Exam - Click Yes and Enter Reason Below- >YesUnlisted Reason for Exam->laryngeal nerve injuryAnesthesia:->None FINAL REPORT TECHNIQUE: CT scan of the chest WITH intravenous contrast. Dose modulation, iterative reconstruction, and/or weight- based adjustment of the mA/kV was utilized to reduce the radiation dose to as low as reasonably achievable. INDICATION: Blunt chest trauma. Concern for laryngeal nerve injury. COMPARISON: 03/09/2020 CT thoracic spine. FINDINGS: LINES/TUBES: None. LUNGS AND AIRWAYS: Moderate biapical parenchymal scarring and paraseptal emphysema. No consolidation or suspicious lesion. Airways are clear. PLEURA: The pleural spaces are clear. HEART AND MEDIASTINUM: The visualized thyroid gland is normal. No mediastinal, hilar, or axillary lymphadenopathy. Heart is normal in size. Mild coronary and aortic atherosclerotic calcifications. No pericardial effusion. SOFT TISSUES AND BONES: Compression deformity of the inferior endplate of T2 as seen on recent CT thoracic spine. Unremarkable soft tissues. UPPER ABDOMEN: Unremarkable. IMPRESSION: 1. No acute intrathoracic abnormality. No evidence of laryngeal nerve impingement. 2. Mild compression deformity of T2 as seen on recent CT thoracic spine. Signed: Melania Malik MDR[place] Verified Date/Time: 03/10/2020 03:26:58 CT chest with IV contrast 2020-03-10 03:26:00Interface, External Ris In - 03/10/2020 3:30 AM CDTFINAL REPORT TECHNIQUE: CT scan of the chest WITH intravenous contrast. Dose modulation, iterative reconstruction, and/or weight-based adjustment of the mA/kV was utilized to reduce the radiation dose to as low as reasonably achievable. INDICATION: Blunt chest trauma. Concern for laryngeal nerve injury. COMPARISON: 03/09/2020 CT thoracic spine. FINDINGS: LINES/TUBES: None. LUNGS AND AIRWAYS: Moderate biapical parenchymal scarring and paraseptal emphysema. No consolidation or suspicious lesion. Airways are clear. PLEURA: The pleural spaces are clear. HEART AND MEDIASTINUM: The visualized thyroid gland is normal. No mediastinal, hilar, or axillary lymphadenopathy. Heart is normal in size. Mild coronary and aortic atherosclerotic calcifications. No pericardial effusion. SOFT TISSUES AND BONES: Compression deformity of theinferior endplate of T2 as seen on recent CT thoracic spine. Unremarkable soft tissues. UPPER ABDOMEN: Unremarkable. IMPRESSION: 1. No acute intrathoracic abnormality. No evidence of laryngeal nerve impingement. 2. Mild compression deformity of T2 as seen on recent CT thoracic spine. Signed: Melania Malik Verified Date/Time: 03/10/2020 03:26:58 [facility], [id number] 02:56:00evaluate course of recurrent laryngeal nervesUnlisted Reason for Exam - Click Yes and Enter Reason Below->YesUnlisted Reason for Exam->laryngeal nerve injuryFINAL REPORT EXAM: CT, SOFT TISSUE NECK, CONTRAST CLINICAL INDICATION: Laryngeal nerve injury. TECHNIQUE: Helical CT examination of the neck with IV contrast. Sagittal and coronal reformations were generated. This exam was performed according to our departmental dose-optimization program, which includes automated exposure control, adjustment of the mA and/or kV according to patient size and/or use of iterative reconstruction technique. COMPARISON: None. FINDINGS: Aerodigestive Tract Structures: Nasopharynx, oropharynx, oral cavity, larynx and hypopharynx are normal. No evidence of vocal cord paralysis. No lesion in the expected course of the laryngeal nerves. Lymph Nodes: No pathologic appearing cervical lymph nodes. 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 Mild cerebral parenchymal volume loss.Included Orbits: Prior bilateral lens surgery. Paranasal Sinuses: NormalTympanomastoid Cavities: Normal Vascular Structures: Minimally torturous ICAs without atherosclerotic disease or stenosis.Osseous Structures: Mild deformity of this inferior endplate of T2. Moderate multilevel degenerative disc disease of the cervical spine.IncludedLung Apices: Mild biapical parenchymal scarring. IMPRESSION:No lesion or abnormality in the expectedcourses of the recurrent laryngeal nerves. Mild compression deformity of T2. Signed: Melania Malik Verified Date/Time: 03/10/2020 02:56:37 Electronically signed by: MELANIA MALIK MD on03/10/2020 02:56 [facility] with IV [id number] 02:56:00Interface, External Ris In - 03/10/2020 2:59 AM CDTFINAL REPORT EXAM: CT, SOFT TISSUE NECK, CONTRAST CLINICAL INDICATION: Laryngeal nerve injury. TECHNIQUE: Helical CT examination of the neck with IV contrast. Sagittal and coronal reformations were generated. This exam was performed according to our departmental dose-optimization program, which includes automated exposure control, adjustment of the mA and/or kV according to patient size and/or use of iterative reconstructiontechnique. COMPARISON: None. FINDINGS: Aerodigestive Tract Structures: Nasopharynx, oropharynx, oral cavity, larynx and hypopharynx are normal. No evidence of vocal cord paralysis. No lesion in the expected course of the laryngeal nerves. Lymph Nodes: No pathologic appearing cervical lymph nodes. 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 Mild cerebral parenchymal volume loss.Included Orbits: Prior bilateral lens surgery. Paranasal Sinuses: NormalTympanomastoidCavities: Normal Vascular Structures: Minimally torturous ICAs without atherosclerotic disease or stenosis.Osseous Structures: Mild deformity of this inferior endplate of T2. Moderate multilevel degenerative disc disease of the cervical spine.Included Lung Apices: Mild biapical parenchymal scarring.IMPRESSION:No lesion or abnormality in the expected courses of the recurrent laryngeal nerves. Mild compression deformity of T2. Signed: Melania Malik MDR[place] Verified Date/Time: 03/10/2020 02:56:37 [facility] CenterEC[facility] 12 [id number] 09:45:05Interface, External Ris In - 03/09/2020 9:45 AM CDTVentricular Rate 76 BPMAtrial Rate 76 BPMP-R Interval 174 msQRS Duration 152 msQ-T Interval 440 msQTC Calculation(Bazett) 495 msP [place] 40 degreesR [place] 41 degreesT [place] 24 degreesNormal sinus rhythmRight bundle branch blockNonspecific ST and T wave ab normalityProlonged QTAbnormal ECGNo previous ECGs availableConfirmed by Suellen STOREY, FABI ([id number]) 03/09/2020 9:45:03 [facility] Center[facility] 2020-03-09 04:59:00 Test Item Value Reference Range Interpretation Comments MAGNESIUM (BEAKER) (test code = 2.1 mg/dL 1.6-2.6 627) Doorshaker ID - PIAYA LBASIC METABOLIC [id number] 04:59:00 Test Item Value Reference Range Interpretation Comments SODIUM (BEAKER) 142 meq/L 136-145 (test code = 381) POTASSIUM (BEAKER) 3.5 meq/L 3.5-5.1 (test code = 379) CHLORIDE (BEAKER) 105 meq/L 98-107 (test code = 382) CO2 (BEAKER) (test 29 meq/L 22-29 code = 355) BLOOD UREA NITROGEN 18 mg/dL 7-21 (BEAKER) (test code = 354) CREATININE (BEAKER) 0.85 mg/dL 0.57-1.25 (test code = 358) GLUCOSE RANDOM 96 mg/dL 70-105 (BEAKER) (test code = 652) CALCIUM (BEAKER) 8.7 mg/dL 8.4-10.2 (test code = 697) EGFR (BEAKER) (test 86 mL/min/1.73 ESTIMA ELIJAH GFR IS code = 1092) sq m NOT ACCURATE CREATININE CLEARANCE IN PREDICTING GLOMERULAR FILTRATION RATE . ESTIMATED GFR I S NOT APPLICABLE FOR DIALYSIS PATIEN TS. Doorshaker ID - PIAYA LCBC W/PLT COUNT & AUTO [id number] 04:39:00 Test Item Value Reference Range Interpretation Comments WHITE BLOOD CELL COUNT (BEAKER) 6.4 K/ L 3.5-10.5 (test code = 775) RED BLOOD CELL COUNT (BEAKER) 4.70 M/ L 4.63-6.08 (test code = 761) HEMOGLOBIN (BEAKER) (test code = 14.9 GM/DL 13.7-17.5 410) HEMATOCRIT (BEAKER) (test code = 44.7 % 40.1-51.0 411) MEAN CORPUSCULAR VOLUME (BEAKER) 95.1 fL 79.0-92.2 H (test code = 753) MEAN CORPUSCULAR HEMOGLOBIN 31.7 pg 25.7-32.2 (BEAKER) (test code = 751) MEAN CORPUSCULAR HEMOGLOBIN CONC 33.3 GM/DL 32.3-36.5 (BEAKER) (test code = 752) RED CELL DISTRIBUTION WIDTH 12.1 % 11.6-14.4 (BEAKER) (test code = 412) PLATELET COUNT (BEAKER) (test 207 K/CU MM 150-450 code = 756) MEAN PLATELET VOLUME (BEAKER) 11.0 fL 9.4-12.4 (test code = 754) NUCLEATED RED BLOOD CELLS 0 /100 WBC 0-0 (BEAKER) (test code = 413) NEUTROPHILS RELATIVE PERCENT 51 % (BEAKER) (test code = 429) LYMPHOCYTES RELATIVE PERCENT 34 % (BEAKER) (test code = 430) MONOCYTES RELATIVE PERCENT 11 % (BEAKER) (test code = 431) EOSINOPHILS RELATIVE PERCENT 3 % (BEAKER) (test code = 432) BASOPHILS RELATIVE PERCENT 1 % (BEAKER) (test code = 437) NEUTROPHILS ABSOLUTE COUNT 3.26 K/ L 1.78-5.38 (BEAKER) (test code = 670) LYMPHOCYTES ABSOLUTE COUNT 2.17 K/ L 1.32-3.57 (BEAKER) (test code = 414) MONOCYTES ABSOLUTE COUNT (BEAKER) 0.69 K/ L 0.30-0.82 (test code = 415) EOSINOPHILS ABSOLUTE COUNT 0.19 K/ L 0.04-0.54 (BEAKER) (test code = 416) BASOPHILS ABSOLUTE COUNT (BEAKER) 0.04 K/ L 0.01-0.08 (test code = 417) IMMATURE GRANULOCYTES-RELATIVE 0 % 0-1 PERCENT (BEAKER) (test code = 2801) CT, SPINE, THORACIC, WO [id number] 04:18:00Unlisted Reason for Exam - Click Yes and Enter Reason Below->YesUnlisted Reason for Exam->evaluation of thoracic spine fx s/p fallFINAL REPORT EXAM: CT thoracic spine without contrast. CT lumbar spine without contrast. CLINICAL HISTORY: Thoracic spine fracture, traumatic. Evaluation of thoracic spine fracture. Lumbosacral spine fracture, traumatic. Evaluation for lumbar spine fracture. Status post fall. TECHNIQUE: CT of the thoracic and lumbar spine was performed without intravenous contrast administration. This exam was performed according to our departmental dose optimization program which includes automated exposure control, adjustment of the mA and/or kV according to patient's size and/or use of iterative reconstructive technique. COMPARISON: None FINDINGS: Thoracic spine:There is a mild thoracickyphosis.There is a mild compression fracture of the T2 vertebral body involving the anterior-inferior aspects. There is no retropulsion. The remaining vertebral body heights are intact. Vertebral bodyalignment is maintained. The articular facets and posterior elements are intact. There is multileveldegenerative disc disease as evidenced by disc space narrowing, endplate changes, vacuum disc phenomena and small osteophytes. There is no significant spinal canal or neuroforaminal stenosis. There is no paravertebral hematoma. The visualized paraspinal soft tissues are unremarkable. There is cholelithiasis. There is nonspecific nodular left adrenal gland thickening. There are calcifications in the pancreas consistent with chronic pancreatitis. There are subcentimeter hyperdensities in the bilateralkidneys, which may represent proteinaceous or hemorrhagic cysts. There is a small hiatal hernia. Lumbar spine:Vertebral body heights are maintained. There is a grade 1 anterolisthesis at L5/S1. 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 There is no acute fracture. There is mild multilevel degenerative disc disease as evidenced by disc space narrowing, endplate Schmorl's nodes and small osteoph ytes. There is no lumbar facet arthropathy. L1/L2: Small diffuse disc bulge resulting in mild spinalcanal and neural foraminal stenosis.L2/L3:Small diffuse disc bulge resulting in mild spinal canal and neural foraminal stenosis.L3/L4: Diffuse disc bulge with ligamentous hypertrophy resulting in mild spinal canal stenosis. Severe left and moderate right neural foraminal stenosis.L4/L5: Small diffusedisc osteophyte complex without significant spinal canal stenosis. Severe left and moderate right neural foraminal stenosis.L5/S1: Small diffuse disc bulge with mild spinal canal stenosis. Moderate bilateral neural foraminal stenosis. The visualized retroperitoneum is unremarkable except for atheroscle rotic calcifications of the aorta. The prostate gland is mildly enlarged. There is mild diffuse mural thickening of the urinary bladder which may be due to underdistention, cystitis and/or chronic bladder outlet obstruction. The paraspinal soft tissues are unremarkable. IMPRESSION: Thoracic spine:Mild T2 compression fracture, which appears recent. Degenerative changes as described. Lumbar spine:Grade 1 anterolisthesis at L5/S1 with right L5 pars interarticularis defect. No evidence of acute lumbar spine fracture or traumatic malalignment. Degenerative changes as described. Mild diffuse mural thickening of the urinary bladder, which may be due to underdistention, cystitis and/or chronic bladder outlet obstruction. Correlate clinically. Signed: Anibal Boudreaux MDR[place] Verified Date/Time: 03/09/2020 04:18:04 CT, SPINE, LUMBAR, WO CONTRAST 2020-03-09 04:18:00Unlisted Reason for Exam - Click Yes and Enter Reason Below- >YesUnlisted Reason for Exam->evaluation for lumbar spine fx s/p fallFINAL REPORT EXAM: CT thoracic spine without contrast. CT lumbar spine without contrast. CLINICAL HISTORY: Thoracic spine fracture, traumatic. Evaluation of thoracic spine fracture. Lumbosacral spine fracture, traumatic. Evaluation for lumbar spine fracture. Status post fall. TECHNIQUE: CT of the thoracic and lumbar spine was performed without intravenous contrast administration. This exam was performed according to our departmental dose optimization program which includes automated exposure control, adjustment of the mA and/or kV according to patient's size and/or use of iterative reconstructive technique. COMPARISON: None FINDINGS: Thoracic spine:There is a mild thoracickyphosis.There is a mild compression fracture of the T2 vertebral body involving the anterior-inferior aspects. There is no retropulsion. The remaining vertebral body heights are intact. Vertebral bodyalignment is maintained. The articular facets and posterior elements are intact. There is multileveldegenerative disc disease as evidenced by disc space narrowing, endplate changes, vacuum disc phenomena and small osteophytes. There is no significant spinal canal or neuroforaminal stenosis. There is no paravertebral hematoma. The visualized paraspinal soft tissues are unremarkable. There is cholelithiasis. There is nonspecific nodular left adrenal gland thickening. There are calcifications in the pancreas consistent with chronic pancreatitis. There are subcentimeter hyperdensities in the bilateralkidneys, which may represent proteinaceous or hemorrhagic cysts. There is a small hiatal hernia. Lumbar spine:Vertebral body heights are maintained. There is a grade 1 anterolisthesis at L5/S1. 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 There is no acute fracture. There is mild multilevel degenerative disc disease as evidenced by disc space narrowing, endplate Schmorl's nodes and small osteoph ytes. There is no lumbar facet arthropathy. L1/L2: Small diffuse disc bulge resulting in mild spinalcanal and neural foraminal stenosis.L2/L3:Small diffuse disc bulge resulting in mild spinal canal and neural foraminal stenosis.L3/L4: Diffuse disc bulge with ligamentous hypertrophy resulting in mild spinal canal stenosis. Severe left and moderate right neural foraminal stenosis.L4/L5: Small diffusedisc osteophyte complex without significant spinal canal stenosis. Severe left and moderate right neural foraminal stenosis.L5/S1: Small diffuse disc bulge with mild spinal canal stenosis. Moderate bilateral neural foraminal stenosis. The visualized retroperitoneum is unremarkable except for atheroscle rotic calcifications of the aorta. The prostate gland is mildly enlarged. There is mild diffuse mural thickening of the urinary bladder which may be due to underdistention, cystitis and/or chronic bladder outlet obstruction. The paraspinal soft tissues are unremarkable. IMPRESSION: Thoracic spine:Mild T2 compression fracture, which appears recent. Degenerative changes as described. Lumbar spine:Grade 1 anterolisthesis at L5/S1 with right L5 pars interarticularis defect. No evidence of acute lumbar spine fracture or traumatic malalignment. Degenerative changes as described. Mild diffuse mural thickening of the urinary bladder, which may be due to underdistention, cystitis and/or chronic bladder outlet obstruction. Correlate clinically. Signed: Anibal Boudreaux [facility] Verified Date/Time: 03/09/2020 04:18:04 [facility] thoracic without IV [id number] 04:18:00Interface, External Ris In - 03/09/2020 4:20 AM CDTFINAL REPORT EXAM: CT thoracic spine without contrast. CT lumbar spine without contrast. CLINICAL HISTORY: Thoracic spine fracture, traumatic. Evaluation of thoracic spine fracture. Lumbosacral spine fracture, traumatic. Evaluation for lumbar spine fracture. Status post fall. TECHNIQUE: CT of the thoracic and lumbar spine was performed without intravenous contrast administration. This exam was performed according to our departmental dose optimization program which includes automated exposure control, adjustment of the mA and/or kV according to patient's size and/or use of iterative reconstructive technique. COMPARISON: None FINDINGS: Thoracic spine:There is a mild thoracic kyphosis.There is a mild compression fracture ofthe T2 vertebral body involving the anterior-inferior aspects. There is no retropulsion. The remaining vertebral body heights are intact. Vertebral body alignment is maintained. The articular facets and posterior elements are intact. There is multilevel degenerative disc disease as evidenced by disc space narrowing, endplate changes, vacuum disc phenomena and small osteophytes. There is no significant spinal canal or neuroforaminal stenosis. There is no paravertebral hematoma. The visualized paraspinal soft tissues are unremarkable. There is cholelithiasis. There is nonspecific nodular left adrenalgland thickening. There are calcifications in the pancreas consistent with chronic pancreatitis. There are subcentimeter hyperdensities in the bilateral kidneys, which may represent proteinaceous or hemorrhagic cysts. There is a small hiatal hernia. Lumbar spine:Vertebral body heights are maintained. There is a grade 1 anterolisthesis at L5/S1. 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 Thereis no acute fracture. There is mild multilevel degenerative disc disease as evidenced by disc space narrowing, endplate Schmorl's nodes and small osteophytes. There is no lumbar facet arthropathy. L1/L2: Small diffuse disc bulge resulting in mild spinal canal and neural foraminal stenosis.L2/L3:Small diffuse disc bulge resulting in mild spinal canal and neural foraminal stenosis.L3/L4: Diffuse disc bulge with ligamentous hypertrophy resulting in mild spinal canal stenosis. Severe left and moderate right neural foraminal stenosis.L4/L5: Small diffuse disc osteophyte complex without significant spinal canal stenosis. Severe left and moderate right neural foraminal stenosis.L5/S1: Small diffuse discbulge with mild spinal canal stenosis. Moderate bilateral neural foraminal stenosis. The visualized retroperitoneum is unremarkable except for atherosclerotic calcifications of the aorta. The prostate gland is mildly enlarged. There is mild diffuse mural thickening of the urinary bladder which may be due to underdistention, cystitis and/or chronic bladder outlet obstruction. The paraspinal soft tissues are unremarkable. IMPRESSION: Thoracic spine:Mild T2 compression fracture, which appears recent. Degenerative changes as described. Lumbar spine:Grade 1 anterolisthesis at L5/S1 with right L5 pars in terarticularis defect. No evidence of acute lumbar spine fracture or traumatic malalignment. Degenerative changes as described. Mild diffuse mural thickening of the urinary bladder, which may be due tounderdistention, cystitis and/or chronic bladder outlet obstruction. Correlate clinically. Signed: Anibal Boudreaux [place] Verified Date/Time: 03/09/2020 04:18:04 [facility] [id number] 04:18:00Interface, External Ris In - 03/09/2020 4:20 AM CDTFINAL REPORT EXAM: CT thoracic spine without contrast. CT lumbar spine without contrast. CLINICAL HISTORY: Thoracic spine fracture, traumatic. Evaluation of thoracic spine fracture. Lumbosacral spine fracture, traumatic. Evaluation for lumbar spine fracture. Status post fall. TECHNIQUE: CT of the thoracic and lumbar spine was performed without intravenous contrast administration. This exam was performed according to our departmental dose optimization program which includes automated exposure control, adjustment of the mA and/or kV according to patient's size and/or use of iterative reconstructive technique. COMPARISON: None FINDINGS: Thoracic spine:There is a mild thoracic kyphosis.There is a mild compression fracture of the T2 vertebral body involving the anterior-inferior aspects. There is no retropulsion. The remaining vertebral body heights are intact. Vertebral body alignment is maintained. The articular facets and posterior elements are intact. There is multilevel degenerative disc disease as evidenced by disc space narrowing, endplate changes, vacuum disc phenomena and small osteophytes. There is no significant spinal canal or neuroforaminal stenosis. There is no paravertebral hematoma. The visualized paraspinal soft tissues are unremarkable. There is cholelithiasis. There is nonspecific nodular left adrenalgland thickening. There are calcifications in the pancreas consistent with chronic pancreatitis. There are subcentimeter hyperdensities in the bilateral kidneys, which may represent proteinaceous or hemorrhagic cysts. There is a small hiatal hernia. Lumbar spine:Vertebral body heights are maintained. There is a grade 1 anterolisthesis at L5/S1. 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 Thereis no acute fracture. There is mild multilevel degenerative disc disease as evidenced by disc space narrowing, endplate Schmorl's nodes and small osteophytes. There is no lumbar facet arthropathy. L1/L2: Small diffuse disc bulge resulting in mild spinal canal and neural foraminal stenosis.L2/L3:Small d iffuse disc bulge resulting in mild spinal canal and neural foraminal stenosis.L3/L4: Diffuse disc bulge with ligamentous hypertrophy resulting in mild spinal canal stenosis. Severe left and moderate right neural foraminal stenosis.L4/L5: Small diffuse disc osteophyte complex without significant spinal canal stenosis. Severe left and moderate right neural foraminal stenosis.L5/S1: Small diffuse discbulge with mild spinal canal stenosis. Moderate bilateral neural foraminal stenosis. The visualized retroperitoneum is unremarkable except for atherosclerotic calcifications of the aorta. The prostate gland is mildly enlarged. There is mild diffuse mural thickening of the urinary bladder which may be due to underdistention, cystitis and/or chronic bladder outlet obstruction. The paraspinal soft tissues are unremarkable. IMPRESSION: Thoracic spine:Mild T2 compression fracture, which appears recent. Degenerative changes as described. Lumbar spine:Grade 1 anterolisthesis at L5/S1 with right L5 pars interarticularis defect. No evidence of acute lumbar spine fracture or traumatic malalignment. Degenerative changes as described. Mild diffuse mural thickening of the urinary bladder, which may be due tounderdistention, cystitis and/or chronic bladder outlet obstruction. Correlate clinically. Signed: Anibal Boudreaux [place] Verified Date/Time: 03/09/2020 04:18:04 [facility] 2 [id number] 21:06:00Reason for exam:->standing thoracic XR to evaluate kyphotic deformity, t2 fractureFINAL REPORT RAD, SPINE, THORACIC, 2 VIEWS CLINICAL INDICATION: standing thoracic XR to evaluate kyphotic deformity, t2 fracture COMPARISON: None FINDINGS: Frontal, later[place] extremities views of the thoracic spine were obtained. There is a mild thoracic kyphosis. There is no discernible thoracic vertebral body compression fracture on the views provided. Vertebral body a lignment is maintained. There are multilevel spinal osteophytes. The intervertebral disc space heights are maintained. The paraspinal regions are unremarkable. There are atherosclerotic calcifications of the thoracic aorta. There is a grade 1 anterolisthesis at C4/C5. IMPRESSION:Mild thoracic kyphosis. No discernible thoracic vertebral body compression fracture on the study. Consider CT for further evaluation. Signed: Anibal Boudreauxort Verified Date/Time: 03/08/2020 21:06:27 XR spine thoracic 2 [id number] 21:06:00 Interface, External Ris In - 03/08/2020 9:09 PM CDTFINAL REPORT RAD, SPINE, THORACIC, 2 VIEWS CLINICAL INDICATION: standing thoracic XR to evaluate kyphotic deformity, t2 fracture COMPARISON: None FINDINGS: Frontal, lateral and extremities views of the thoracic spine were obtained. There is a mild thoracic kyphosis. There is no discernible thoracic vertebral body compression fracture on the views provided. Vertebral body alignment is maintained. There are multilevel spinal osteophytes. The intervertebral disc space heights are maintained. The paraspinal regions are unremarkable. There are atherosclerotic calcifications of the thoracic aorta. There is a grade 1 anterolisthesis at C4/C5. IMPRESSION:Mild thoracic kyphosis.No discernible thoracic vertebral body compression fracture on the study. Consider CT for further evaluation. Signed: Anibal Boudreaux MDRpazort VerifiedDate/Time: 03/08/2020 21:06:27 09:06 [facility] COMPREHENSIVE METABOLIC [id number] 18:30:00 Test Item Value Reference Range Interpretation Comments TOTAL PROTEIN 7.5 gm/dL 6.0-8.3 Specimen marke dly (BEAKER) (test code hemolyze dLIS verified = 770) .Redraw called to B.no.[id number] hem olyzed sampleThis is a corrected resul t. Previous result was 7.5 gm/dL on 03/08/2020 at 18 21 CDT ALBUMIN (BEAKER) 4.0 g/dL 3.5-5.0 Specimen oj rkedly (test code = 1145) hemolyzed LIS verified .Redraw called to B.no.[id number] hem olyzed sampleThis is a corrected resul t. Previous result was 4.0 g/dL on 02/09 at 1821 CDT ALKALINE PHOSPHATASE 86 U/L 40-150 LIS marshal ified .Redraw (BEAKER) (test code called t o B.no.[id number] = 346) hemolyzed sampl eThis is a corrected result. Previou s result was 86 U /L on 03/08/2020 at 18 21 CDT BILIRUBIN TOTAL 1.2 mg/dL 0.2-1.2 Specimen radha mulligan (BEAKER) (test code hemolyze dThis is a = 377) corrected resul t. Previous result was 1.2 mg/dL on 03/08/2020 at 18 21 CDT SODIUM (BEAKER) 140 meq/L 136-145 LIS verified .Redraw (test code = 381) called to B.no.[id number] hemolyzed sampl eThis is a corrected result. Previou s result was 140 meq/L on 03/08/2020 at 1821 CDT POTASSIUM (BEAKER) 4.4 meq/L 3.5-5.1 Specimen markedly (test code = 379) hemolyzedT his is a corrected resul t. Previous result was 4.4 meq/L on 03/08/2020 at 18 21 CDT CHLORIDE (BEAKER) 101 meq/L 98-107 LIS verifi ed .Redraw (test code = 382) called to B.no.[id number] hemolyzed westley eThis is a corrected result. Previou s result was 101 meq/L on 03/08/2020 at 1821 CDT CO2 (BEAKER) (test 29 meq/L 22-29 LIS verif ied .Redraw code = 355) called to B.no. [id number] hemolyzed sampl eThis is a corrected result. Previou s result was 29 m eq/L on 03/08/2020 at 1821 CDT BLOOD UREA NITROGEN 18 mg/dL 7-21 LIS veri fied .Redraw (BEAKER) (test code called t o B.no.[id number] = 354) hemolyzed sampl eThis is a corrected result. Previou s result was 18 m g/dL on 03/08/2020 at 1821 CDT CREATININE (BEAKER) 0.96 mg/dL 0.57-1.25 Specimen markedly (test code = 358) hemolyzedT his is a corrected resul t. Previous result was 0.96 mg/dL on 03/08/2020 at 18 21 CDT GLUCOSE RANDOM 110 mg/dL 70-105 H LIS verified .Redraw ([facility]) (test code called t o B.no.[id number] = 652) hemolyzed westley Hurst is a corrected result. Previou s result was 110 mg/dL on 03/08/2020 at 1821 CDT CALCIUM (AKER) 8.9 mg/dL 8.4-10.2 LIS verifie d .Redraw (test code = 697) called to B.no.[id number] hemolyzed westley Hurst is a corrected result. Previou s result was 8.9 mg/dL on 03/08/2020 at 1821 CDT AST (SGOT) ([facility]) 35 U/L 5-34 H Specimen markedly (test code = 353) hemolyzedT his is a corrected resul t. Previous result was 35 U/L on 2019 at 1821 CDT ALT (SGPT) ([facility]) 24 U/L 6-55 Specimen markedly (test code = 347) hemolyzedT his is a corrected resul t. Previous result was 24 U/L on 2019 at 1821 CDT EGFR (BEAKER) (test 75 ESTIMATE D GFR IS NOT code = 1092) mL/min/1.73 ACCURATE sq m CREATININE ELIEZER ALANNA IN PREDICTING GLOMERULAR FILT RATION RATE. ESTIMATED GFR IS NOT APPLICAB LE FOR DIALYSIS PATIEN TS.LIS verified .Redra w called to B.no. [id number] hemolyzed westley Hurst is a corrected result. Previou s result was 75 mL/min/1.73 sq m on 03/08/2020 at 18 21 CDT Doorshaker ID - DBComprehensive metabolic [id number] 18:30:00Protein, TotalComment: Specimen markedly hemolyzedLIS verified .Redraw called to B.no.[id number] hemolyzed sample This is a corrected result. Previous result was 7.5 gm/dL on 03/08/2020 at 1821 [facility] Specimen markedly hemolyzedLIS verified .Redraw called to B.no.530591 hemolyzed sample This is a corrected result. Previous result was 4.0 g/dL on 03/08/2020at [address] [place], [place] [address]Alkaline PhosphataseComment: LIS verified .Redraw called to B.no.011249 hemolyzed sample This is a corrected result. Previous result was 86 U/L on 03/08/[address] [place], [place] [address]Total BilirubinComment: Specimen markedly hemolyzed This is a corrected result. Previous result was 1.2 mg/dL on 03/08/[address] [place], [place] [address]odiumComment: LIS verified .Redraw called to B.no.758532 hemolyzed sampleThis is a corrected result. Previous result was 140 meq/L on 03/08/[address] [place], [place] [address]PotassiumComment: Specimen markedly hemolyzed This is a corrected result. Previous result was 4.4 meq/L on 03/08/[address] [place], [place] [address]ChlorideComment: LIS verified .Redraw called to B.no.699163 hemolyzed sample This is a corrected result. Previous result was 101 meq/L on 03/08/[address] [place], [place] [address]CO2Comment: LIS verified .Redraw called to B.no.513038 hemolyzed sample This is a corrected result. Previous result was29 meq/L on 03/08/[address] [place], [place] [address]BUNComment: LIS verified .Redraw called to B.no.897960 hemolyzed sample This is a corrected result. Previous result was 18 mg/dL on 03/08/[address] [place], [place] [address]CreatinineComment: Specimen markedly hemolyzed This is a corrected result. Previous result was 0.96 mg/dL on 03/08/[address] [place], [place] [address]GlucoseComment: LIS verified .Redraw called to B.no.730745 hemolyzed rush ple This is a corrected result. Previous result was 110 mg/dL on 03/08/[address] [place], [place] [address]CalciumComment: LIS verified .Redraw called to B.no.178419 hemolyzed sample This is a corrected result. Previous result was 8.9 mg/dL on 03/08/[address] [place], [place] [address]ASTComment: Specimen markedly hemolyzed This is a corrected result. Previous result was 35 U/L on 03/08/[address] [place], [place] [address]ALTComment: Specimen markedly hemolyzed This is a corrected result. Previous result was 24 U/L on 03/08/[address] [place], [place] [address]EGFRComment: ESTIMATED GFR IS NOT ACCURATE CREATININE CLEARANCE IN PREDICTING GLOMERULAR FILTRATION RATE. ESTIMATED GFR IS NOT APPLICABLE FOR DIALYSIS PATIENTS.LISverified .Redraw called to B.no.837597 hemolyzed sample This is a corrected result. Previous result was 75 mL/min/1.73 sq m on 03/08/[address] [place] [address] CENTEROperator ID - DBCHI [facility] Community HospitalProthrombin time/[id number] 18:13:00 Test Item Value Reference Range Interpretation Comments Protime (test code = 13.8 11.9- 14.2 5902-2) seconds INR (test code = 1.09 <=5.90 6301-6) AKHIL (test code = AKHIL) Effective 12/06/2018: PT Reference Range ChangeNew: 11.9-14.2 Previous: 11.7-14.7 RECOMMENDED COUMADIN/WARFARIN INR THERAPY RANGESSTANDARD DOSE: 2.0-3.0 Includes: PROPHYLAXIS for venous thrombosis, systemic embolization; TREATMENT for venous thrombosis and/or pulmonary embolus.HIGH RISK: Target INR is 2.5-3.5 for patients wiht mechanical heart valves. Lab Interpretation Normal (test code = 06922-3) [facility] CenterPROTHROMBIN [facility]/[id number] 18:13:00 Test Item Value Reference Range Interpretation Comments PROTIME (BEAKER) (test code = 13.8 seconds 11.9-14.2 759) INR (BEAKER) (test code = 370) 1.09 <=5.90 Effective 12/06/2018: PT Reference Range ChangeNew: 11.9-14.2 Previous: 11.7- 14.7RECOMMENDED COUMADIN/WARFARIN INR THERAPY RANGESSTANDARD DOSE: 2.0-3.0 Includes: PROPHYLAXIS for venous thrombosis, systemic embolization; TREATMENT for venous thrombosis and/or pulmonary embolus.HIGH RISK: Target INR is2.5-3.5 for patients wiht mechanical heart valves.CBC W/PLT COUNT & AUTO [id number] 18:03:00 Test Item Value Reference Range Interpretation Comments WHITE BLOOD CELL COUNT (BEAKER) 6.5 K/ L 3.5-10.5 (test code = 775) RED BLOOD CELL COUNT (BEAKER) 4.76 M/ L 4.63-6.08 (test code = 761) HEMOGLOBIN (BEAKER) (test code = 14.9 GM/DL 13.7-17.5 410) HEMATOCRIT (BEAKER) (test code = 44.7 % 40.1-51.0 411) MEAN CORPUSCULAR VOLUME (BEAKER) 93.9 fL 79.0-92.2 H (test code = 753) MEAN CORPUSCULAR HEMOGLOBIN 31.3 pg 25.7-32.2 (BEAKER) (test code = 751) MEAN CORPUSCULAR HEMOGLOBIN CONC 33.3 GM/DL 32.3-36.5 (BEAKER) (test code = 752) RED CELL DISTRIBUTION WIDTH 12.1 % 11.6-14.4 (BEAKER) (test code = 412) PLATELET COUNT (BEAKER) (test 228 K/CU MM 150-450 code = 756) MEAN PLATELET VOLUME (BEAKER) 11.2 fL 9.4-12.4 (test code = 754) NUCLEATED RED BLOOD CELLS 0 /100 WBC 0-0 (BEAKER) (test code = 413) NEUTROPHILS RELATIVE PERCENT 59 % (BEAKER) (test code = 429) LYMPHOCYTES RELATIVE PERCENT 29 % (BEAKER) (test code = 430) MONOCYTES RELATIVE PERCENT 9 % (BEAKER) (test code = 431) EOSINOPHILS RELATIVE PERCENT 2 % (BEAKER) (test code = 432) BASOPHILS RELATIVE PERCENT 1 % (BEAKER) (test code = 437) NEUTROPHILS ABSOLUTE COUNT 3.81 K/ L 1.78-5.38 (BEAKER) (test code = 670) LYMPHOCYTES ABSOLUTE COUNT 1.90 K/ L 1.32-3.57 (BEAKER) (test code = 414) MONOCYTES ABSOLUTE COUNT (BEAKER) 0.61 K/ L 0.30-0.82 (test code = 415) EOSINOPHILS ABSOLUTE COUNT 0.14 K/ L 0.04-0.54 (BEAKER) (test code = 416) BASOPHILS ABSOLUTE COUNT (BEAKER) 0.04 K/ L 0.01-0.08 (test code = 417) IMMATURE GRANULOCYTES-RELATIVE 0 % 0-1 PERCENT (BEAKER) (test code = 2801) RAD, CHEST, 1 VIEW, NON [id number] 17:47:00Reason for exam:->pre opShould this be performed at the bedside?->YesFINAL REPORT History: Preoperative evaluation. FINDINGS: Chest, single view: Single AP view of the chest shows a normal appearing heart and mediastinum. Lungs are clear, free of edema, focal consolidation or visible effusions. No pneumothorax. Bones are unremarkable. IMPRESSION:1. Negative for acute cardiopulmonary disease. Signed: Dori Estrada Verified Date/Time: 03/08/2020 17:47:07 Reading Location: [address] Transitional Reading Room XR chest 1 view portable / bedside 2020-03-08 17:47:00Interface, External Ris In - 03/08/2020 5:49 PM CDTFINAL REPORT History: Preoperative evaluation. FINDINGS: Chest, single view: Single AP view of the chest shows a normal appearing heart and mediastinum. Lungs are clear, free of edema, focal consolidation or visible effusions. No pneumothorax. Bones are unremarkable. IMPRESSION: 1. Negative for acute cardiopulmonary disease. Signed: Dori Estrada Verified Date/Time: 03/08/2020 17:47:07 Reading Location: [facility] B1 [id number] Reading Room [facility]
[2020-06-15] MEDS ORDERED: ACETAMINOPHEN 325 MG TABLET ONE (12:24)
--- NOTE | 2020-06-15 13:06 | RAD REPORT ---
EXAM DESCRIPTION: RAD - Knee Left 3 View - 06/15/2020 12:52 pm CLINICAL HISTORY: Swelling;Pain COMPARISON: No comparisons FINDINGS: Mild to moderate soft tissue swelling is seen about the knee. No fracture, dislocation or joint effusion.
--- NOTE | 2020-06-15 14:08 | RAD REPORT ---
EXAM DESCRIPTION: US - Extremity Venous Uni Ltd - 06/15/2020 2:00 pm CLINICAL HISTORY: SWELLING Leg swelling and edema. COMPARISON: <Comparisons> FINDINGS: Left lower extremity venous system was interrogated with Doppler technique. Normal flow, c ompressibility and augmentation was noted. There is no DVT present. IMPRESSION: No evidence of left lower extremity deep venous thrombosis.
--- NOTE | 2020-06-15 14:41 | EDPHYS ---
Physician Documentation [facility] Name: Beau Velazquez Age: 84 yrs Sex: Male : 1935 Arrival Date: 06/15/2020 Time: 11:20 Bed 24 Private MD: Gilberto Claire H ED Physician Enoc Benitez HPI: 06/15 12:07 This 84 yrs old Male presents to ER via Ambulatory with complaints of Knee pm1 Pain. 12:07 The patient presents with a contusion, pain, swelling. The complaints affect the left pm1 knee. Context: The problem was sustained at home, resulted from the patient falling, Patient rolled off the bed last night and then he was crawling on the floor. Presents with pain and swelling to left knee cap. No headache, head injury, neck pain, LOC, the patient can fully bear weight, the patient is able to ambulate, with mild difficulty. Onset: The symptoms/episode began/occurred last night. Modifying factors: The symptoms are alleviated by remaining still, the symptoms are aggravated by movement, weight bearing, bending knee. Associated signs and symptoms: Pertinent positives: swelling, Pertinent negatives calf tenderness, numbness, tingling. Treatment prior to arrival includes: no previous treatment. Historical: - Allergies: 11:48 No Known Allergies; ss - PMHx: 11:48 Glaucoma; Hypertension; Parkinsons; ss - Immunization history:: Adult Immunizations up to date. - Social history:: Smoking status: Patient denies any tobacco usage or history of. ROS: 12:07 Constitutional: Negative for fever, chills, and weight loss, Neck: Negative for injury, pm1 pain, and swelling, Cardiovascular: Negative for chest pain, palpitations, and edema, Respiratory: Negative for shortness of breath, cough, wheezing, and pleuritic chest pain, Back: Negative for injury and pain. 12:07 Neuro: Negative for headache, weakness, numbness, tingling, and seizure. 12:07 MS/extremity: Positive for pain, swelling, tenderness, of the left knee, Negative for deformity. 12:07 Skin: Positive for swelling, redness to left knee cap. Exam: 12:07 Constitutional: This is a well developed, well nourished patient who is awake, alert, pm1 and in no acute distress. Head/Face: Normocephalic, atraumatic. Neck: Trachea midline, no thyromegaly or masses palpated, and no cervical lymphadenopathy. Supple, full range of motion without nuchal rigidity, or vertebral point tenderness. No Meningismus. 12:07 Back: No spinal tenderness. No costovertebral tenderness. Full range of motion. 12:07 Cardiovascular: Exam negative for acute changes, Rate: normal, Rhythm: regular, Pulses: no pulse deficits are appreciated. 12:07 Respiratory: Exam negative for acute changes, respiratory distress, shortness of breath. 12:07 Musculoskeletal/extremity: Extremities: grossly normal except: noted in the left knee: swelling, tenderness, Swelling to left calf area without any tenderness, the left leg Sensation intact. 12:07 Skin: Appearance: normal except for affected area, injury, contusion(s), that are superficial, of the left knee patella. 12:07 Neuro: Exam negative for acute changes, Orientation: is normal, Mentation: is normal, Motor: is normal, moves all fours. Vital Signs: 11:46 BP 124 / 64; Pulse 88; Resp 17; Temp 97.2(TE); Pulse Ox 97% on R/A; Weight 72.57 kg; ss Height 5 ft. 5 in. (165.10 cm); Pain 8/10; 11:46 Body Mass Index 26.63 (72.57 kg, 165.10 cm) ss MDM: 11:52 Patient medically screened. pm1 14:40 Data reviewed: vital signs. Data interpreted: Pulse oximetry: on room air is 97 %. pm1 Interpretation: normal. Counseling: I had a detailed discussion with the patient and/or guardian regarding: the historical points, exam findings, and any diagnostic results supporting the discharge/admit diagnosis, radiology results, the need for outpatient follow up, to return to the emergency department if symptoms worsen or persist or if there are any questions or concerns that arise at home. 14:57 ED course: Patient does not want any medications other than tylenol or ibuprofen for pm1 pain due to the constipation he experiences with codeine or tramadol. 06/15 12:07 Order name: Extremity Venous Uni Ltd US; Complete Time: 14:09 pm1 06/15 12:07 Order name: Knee Left 3 View XRAY; Complete Time: 13:08 pm1 Administered Medications: 12:13 Drug: Tylenol 650 mg Route: PO; 14:00 Follow up: Response: No adverse reaction; Pain is decreased Disposition: 15:47 Co-signature as Attending Physician, Enoc Benitez MD. rn Disposition: 06/15/20 14:41 Discharged to Home. Impression: Pain in left knee, Contusion of left knee, Effusion, left knee. - Condition is Stable. - Discharge Instructions: Contusion, Knee Effusion, Knee Pain. - Medication Reconciliation Form, Thank You Letter, Antibiotic Education, Prescription Opioid Use form. - Follow up: Emergency Department; When: As needed; Reason: Worsening of condition. Follow up: Private Physician; When: 2 - 3 days; Reason: Recheck today's complaints, Continuance of care, Re-evaluation by your physician. - Problem is new. - Symptoms have improved. Signatures: Dispatcher [employer] EDMS Enoc Benitez MD MD rn Smirch, Shelby, RN RN Franck Loaiza NP MESSENGER FLOORPERSON pm1 Jennifer Rodriguez RN RN Corrections: (The following items were deleted from the chart) 14:41 14:41 06/15/2020 14:41 Discharged to Home. Impression: Pain in left knee. Condition is pm1 Stable. Forms are Medication Reconciliation Form, Thank You Letter, Antibiotic Education, Prescription Opioid Use. Follow up: Emergency Department; When: As needed; Reason: Worsening of condition. Follow up: Private Physician; When: 2 - 3 days; Reason: Recheck today's complaints, Continuance of care, Re-evaluation by your physician. Problem is new. Symptoms have improved. pm1 14:57 14:41 06/15/2020 14:41 Discharged to Home. Impression: Pain in left knee; Contusion of pm1 left knee. Condition is Stable. Discharge Instructions: Contusion, Knee Pain. Forms are Medication Reconciliation Form, Thank You Letter, Antibiotic Education, Prescription Opioid Use. Follow up: Emergency Department; When: As needed; Reason: Worsening of condition. Follow up: Private Physician; When: 2 - 3 days; Reason: Recheck today's complaints, Continuance of care, Re-evaluation by your physician. Problem is new. Symptoms have improved. pm1 15:13 14:57 06/15/2020 14:41 Discharged to Home. Impression: Pain in left knee; Contusion of ah left knee; Effusion, left knee. Condition is Stable. Discharge Instructions: Contusion, Knee Pain. Forms are Medication Reconciliation Form, Thank You Letter, Antibiotic Education, Prescription Opioid Use. Follow up: Emergency Department; When: As needed; Reason: Worsening of condition. Follow up: Private Physician; When: 2 - 3 days; Reason: Recheck today's complaints, Continuance of care, Re-evaluation by your physician. Problem is new. Symptoms have improved. pm1
--- NOTE | 2020-06-15 14:41 | ER ---
Nurse's Notes [facility] Name: Beau Velazquez Age: 84 yrs Sex: Male : 1935 Arrival Date: 06/15/2020 Time: 11:20 Bed 24 Private MD: Gilberto Claire H Diagnosis: Pain in left knee;Contusion of left knee;Effusion, left knee Presentation: 06/15 11:46 Chief complaint: Patient states: L leg pain that began 1 week ago. No specific injury, ss however patient has been having frequent falls. Coronavirus screen: Client denies travel out of the [place] in the last 14 days. Ebola Screen: Patient denies exposure to infectious person. Patient denies travel to an Ebola-affected area in the 21 days before illness onset. Initial Sepsis Screen: Does the patient meet any 2 criteria? No. Patient's initial sepsis screen is negative. Does the patient have a suspected source of infection? No. Patient's initial sepsis screen is negative. Risk Assessment: Do you want to hurt yourself or someone else? Patient reports no desire to harm self or others. Onset of symptoms was May 12, 2020. 11:46 Method Of Arrival: Ambulatory ss 11:46 Acuity: RONNIE 3 ss Historical: - Allergies: 11:48 No Known Allergies; ss - PMHx: 11:48 Glaucoma; Hypertension; Parkinsons; ss - Immunization history:: Adult Immunizations up to date. - Social history:: Smoking status: Patient denies any tobacco usage or history of. Screenin:19 Abuse screen: Denies threats or abuse. Nutritional screening: No deficits noted. Tuberculosis screening: No symptoms or risk factors identified. Fall Risk Fall in past 12 months (25 points). Secondary diagnosis (15 points) impaired mobility, Parkinsons. Ambulatory Aid- Gait- Impaired (20 pts.). Mental Status- Overestimates/Forgets Limitations (15 pts.). Total Parry Fall Scale indicates High Risk Score (45 or more points). Fall prevention measures have been instituted. Side Rails Up X 2 Placed Close to Nursing Station Frequent Obs/Assessments Occuring As available patient and family educated on Fall Prevention Program and Strategies. Assessment: 12:15 General: Appears in no apparent distress. Behavior is calm, cooperative, appropriate ah for age. Pain: Complains of pain in left knee Pain currently is 8 out of 10 on a pain scale. Quality of pain is described as dull, gnawing, Pain began a week or so Is intermittent, Aggravated by standing. Neuro: Level of Consciousness is awake, alert, obeys commands, Oriented to person, place, time, situation, Appropriate for age. Cardiovascular: Heart tones S1 S2 present. Respiratory: Airway is patent Respiratory effort is even, unlabored, Respiratory pattern is regular. GI: No signs and/or symptoms were reported involving the gastrointestinal system. Derm: Skin is intact, Skin is red, Skin temperature is warm. Musculoskeletal: Amputation of Circulation, motion, and sensation intact. Capillary refill < 3 seconds, Range of motion: limited in left knee. 14:01 Reassessment: Awaiting on results from ultrasound. No needs voiced at this time. Pt ah states that the tylenol was effective. 15:12 Reassessment: Discharged to . Education provided. Voiced understanding. ah Vital Signs: 11:46 BP 124 / 64; Pulse 88; Resp 17; Temp 97.2(TE); Pulse Ox 97% on R/A; Weight 72.57 kg; ss Height 5 ft. 5 in. (165.10 cm); Pain 8/10; 11:46 Body Mass Index 26.63 (72.57 kg, 165.10 cm) ED Course: 11:20 Patient arrived in ED. as 11:21 Gilberto Claire DO is Private Physician. as 11:48 Triage completed. ss 11:48 Arm band placed on right wrist. ss 11:51 Franck Loaiza NP is PHCP. pm1 11:51 Enoc Benitez MD is Attending Physician. pm1 11:54 Shyann Lambert, RN is Primary Nurse. ca1 12:08 Jennifer Rodriguez, RN is Primary Nurse. ah 12:52 Knee Left 3 View XRAY In Process Unspecified. EDMS 13:53 Ultrasound completed. Patient tolerated well. Notified EQUIPMENT TECHNICIAN/JANNA barr. sg3 14:00 Extremity Venous Uni Ltd US In Process Unspecified. EDMS 14:01 Patient has correct armband on for positive identification. Placed in gown. Bed in low ah position. Call light in reach. Side rails up X 1. 15:13 No provider procedures requiring assistance completed. Patient did not have IV access during this emergency room visit. Nura wrap to left knee. Administered Medications: 12:13 Drug: Tylenol 650 mg Route: PO; 14:00 Follow up: Response: No adverse reaction; Pain is decreased Outcome: 14:41 Discharge ordered by MD. pm1 15:13 Discharged to home ambulatory. 15:13 Condition: stable 15:13 Discharge instructions given to patient, Instructed on discharge instructions, follow up and referral plans. Demonstrated understanding of instructions, follow-up care. 15:13 Patient left the ED. Signatures: Dispatcher [employer] EDGA Pushpa Capellan Shelby, RN RN Franck Loaiza NP EQUIPMENT TECHNICIAN pm1 Katie Pastor 3 Shyann Lambert RN RN [facility] Jennifer Rodriguez RN RN Corrections: (The following items were deleted from the chart) 11:49 11:46 Acuity: RONNIE 4 ss
[2020-06-19 10:28] VITALS: BP 124/64; TEMP 97.2; O2SAT 97
== END 2020-06-15 15:13 | disposition home or self-care (01) ==
LOC: ER 11:18
DX: M25.462 Effusion, left knee (principal); S80.02XA Contusion of left knee, initial encounter; W06.XXXA Fall from bed, initial encounter; Y93.9 Activity, unspecified; Y92.003 Bedroom of unspecified non-institutional (private) residence as the place of occurrence of the external cause; I10 Essential (primary) hypertension; G20 Parkinson's disease
CPT/HCPCS: 93971; 99283